=== PATIENT | female | born 1975 | race American Indian/Alaskan Native ===

== ENCOUNTER 2017-01-26 11:22 | Emergency (ER) | payer OTHER ==
[2017-01-26 12:26] LABS: Anion Gap 21 mmol/L; BUN/Creatinine Ratio 4.28; Basophils % (Auto) 0.4 % (0.0-1.8); Blood Urea Nitrogen 3 mg/dL (7-17); Calcium 8.5 mg/dL (8.4-10.2); Carbon Dioxide 17 mmol/L (22-30); Chloride 98.3 mmol/L (98-107); Glucose 117 mg/dL (65-100); Mean Corpuscular HGB Conc 29 % (30-34); Platelet Count 441 K/mm3 (140-440); Potassium 3.5 mmol/L (3.6-5.0); Red Blood Count 4.97 M/mm3 (3.65-5.03); Sodium 133 mmol/L (137-145); White Blood Count 11.1 K/mm3 (4.5-11.0)
[2017-01-26 12:27] LABS: Hematocrit 33.4 % (30.3-42.9); Hemoglobin 9.8 gm/dl (10.1-14.3); Mean Corpuscular Hemoglobin 20 pg (28-32); Mean Corpuscular Volume 67 fl (79-97); Red Cell Distribution Width 21.8 % (13.2-15.2)
[2017-01-26] MEDS ORDERED: NACL 0.9% 1000 ML 2,000 ML IV ONE (17:01)
--- NOTE | 2017-01-26 17:04 | Emergency Department Report ---
ED General Adult HPI - General Chief complaint: Syncope Stated complaint: FAINTING/SYNCOPE Time Seen by Provider: 01/26/17 16:44 Source: patient, EMS (ems notes not available at time of chart dictation), RN notes reviewed Mode of arrival: Wheelchair Limitations: No Limitations - History of Present Illness Initial comments: This is a 42-year-old female. She is previously unknown to me. Patient reports a past medical history of ADHD, anemia, gastric bypass in 2000. The patient is brought to the hospital by EMS for complaint of loss of consciousness and generalized weakness. The patient reports that for the past 3 days, she really hasn't eaten anything or drank much of anything. She has no chest pain, there is no shortness of breath. She reports that she feels weak. There is no leg pain. There is no leg swelling. No recent travel greater than 4 hours, no recent hospital admissions. There is no hematemesis. There is no bright red blood per rectum. There is no focal extremity weakness. The patient also reports a sensation of body numbness. She reports the numbness starts in her bilateral anterior distal tibial regions , and then radiates up onto her anterior thighs, and onto her stomach. This is been going on for a while. There is no bladder or bowel retention or incontinence. There is no saddle anesthesia. There is positive dysuria. The patient reports that she is taking her iron supplementation, but she is not taking her multivitamins. She reports that she does not like the way the multivitamins make her feel. Primary care doctor: Dr. Her -: Gradual Severity scale (0 -10): 0 Consistency: constant Improves with: rest Worsens with: movement Associated Symptoms: malaise, syncope. denies: chest pain - Related Data Previous Rx's Medication Instructions Recorded Last Taken Type B12/Levomefolate Calcium/B-6 1 each PO DAILY #30 tablet 02/03/15 Unknown Rx [Vkfepoxdbt-Nyfdfds-Rdbkonef Tb] Iron Fum,Ps/FA/Vit B with C #9 1 each PO DAILY #60 capsule 02/03/15 Unknown Rx [Integra Plus Capsule] Mirtazapine [Remeron] 30 mg PO QHS #30 tablet 02/03/15 Unknown Rx B12/Levomefolate Calcium/B-6 1 each PO HS #30 tablet 01/26/17 Unknown Rx [Folbic Rf Tablet] B12/Levomefolate Calcium/B-6 1 each PO QDAY #30 tablet 01/26/17 Unknown Rx [Nfhyz-Dnyppsvdmq-Pdurahwvl Tb] Nitrofurantoin [place]/M-Cryst 100 mg PO Q12HR #14 capsule 01/26/17 Unknown Rx [Macrobid CAP] Allergies Allergy/AdvReac Type Severity Reaction Status Date / Time No Known Allergies Allergy Unverified 02/02/15 13:26 ED Review of Systems ROS: Stated complaint: FAINTING/SYNCOPE Other details as noted in HPI Constitutional: denies: malaise Eyes: denies: vision change ENT: denies: epistaxis Respiratory: denies: shortness of breath Cardiovascular: syncope Gastrointestinal: denies: abdominal pain Genitourinary: denies: dysuria Musculoskeletal: denies: arthralgia, myalgia Neurological: weakness, numbness Psychiatric: anxiety ED Past Medical Hx - Past Medical History Previous Medical History?: Yes Hx Diabetes: No Hx Asthma: No Additional medical history: Obesity, Severe anemia, ADHD - Surgical History Past Surgical History?: Yes Additional Surgical History: Gastric bypass 2000 - Social History Smoking Status: Never Smoker Substance Use Type: Alcohol, Prescribed - Medications Home Medications: Home Medications Medication Instructions Recorded Confirmed Last Taken Type B12/Levomefolate Calcium/B-6 1 each PO DAILY #30 tablet 02/03/15 Unknown Rx [Tesyzuxjxt-Pxipktv-Rvyivxin Tb] Iron Fum,Ps/FA/Vit B with C #9 1 each PO DAILY #60 capsule 02/03/15 Unknown Rx [Integra Plus Capsule] Mirtazapine [Remeron] 30 mg PO QHS #30 tablet 02/03/15 Unknown Rx B12/Levomefolate Calcium/B-6 1 each PO HS #30 tablet 01/26/17 Unknown Rx [Folbic Rf Tablet] B12/Levomefolate Calcium/B-6 1 each PO QDAY #30 tablet 01/26/17 Unknown Rx [Kioxb-Glcrcuwkdg-Lpkspkhnf Tb] Nitrofurantoin [place]/M-Cryst 100 mg PO Q12HR #14 capsule 01/26/17 Unknown Rx [Macrobid CAP] ED Physical Exam - General Limitations: No Limitations General appearance: alert, in no apparent distress - Head Head exam: Present: atraumatic, normocephalic - Eye Eye exam: Present: normal appearance, PERRL, EOMI, nystagmus, other (visual acuity is intact to finger counting, color perception, reading at a close distance,) - ENT ENT exam: Present: normal exam, normal orophraynx, mucous membranes moist, normal external ear exam - Neck Neck exam: Present: normal inspection, full ROM. Absent: tenderness, meningismus - Respiratory Respiratory exam: Present: normal lung sounds bilaterally. Absent: respiratory distress, wheezes, rales, rhonchi, stridor, decreased breath sounds - Cardiovascular Cardiovascular Exam: Present: regular rate, normal rhythm. Absent: systolic murmur, diastolic murmur, rubs, gallop - GI/Abdominal GI/Abdominal exam: Present: soft, normal bowel sounds. Absent: distended, tenderness, guarding, rebound, rigid, pulsatile mass - Extremities Exam Extremities exam: Present: normal inspection, full ROM, normal capillary refill. Absent: tenderness, pedal edema, joint swelling, calf tenderness - Back Exam Back exam: Present: normal inspection, full ROM. Absent: tenderness, CVA tenderness (R), CVA tenderness (L), muscle spasm, paraspinal tenderness, vertebral tenderness - Neurological Exam Neurological exam: Present: alert, oriented X3, normal gait (negative pronator drift. Normal gndw-[id number]. Normal gait. Normal tandem gait. Negative Romberg.), other (Extraocular movements intact. Tongue midline. No facial droop. Facial sensation intact to light touch in the V1, V2, V3 distribution bilaterally. 5 and 5 strength in 4 extremities.. Sensation is intact to light touch in 4 extremities.). Absent: motor sensory deficit (sensation intact to light touch,pinprick, proprioception, in 4 extremities) - Psychiatric Psychiatric exam: Present: normal affect, normal mood - Skin Skin exam: Present: warm, dry, intact, normal color. Absent: rash ED Course Vital Signs 01/26/17 01/26/17 01/26/17 11:35 16:30 16:31 Temperature 97.9 F Pulse Rate 119 H 100 H Respiratory 20 16 16 Rate Blood Pressure 124/86 Blood Pressure 130/81 [Left] Blood Pressure [Right] O2 Sat by Pulse 100 99 Oximetry 01/26/17 19:00 Temperature Pulse Rate 89 Respiratory 16 Rate Blood Pressure Blood Pressure [Left] Blood Pressure 128/80 [Right] O2 Sat by Pulse 99 Oximetry - Reevaluation(s) Reevaluation #1: 01/26/17 19:23 differential diagnosis: Vagal event, orthostasis, hypoglycemia, electrolyte imbalance, structural cardiac disease, nonspecific neuropathy, Pulmonary embolus Assessment and plan: 42-year-old female with report of syncope. Patient reports not eating for the past 3 days. No pulmonary embolus or DVT risk factors, low risk by well's criteria, d-dimer is negative. She walks with a steady gait, has a GCS of 15, with anion score of 0. Her neurologic exam is unremarkable, and I am unable to elucidate any sensory or motor or abnormality. A CT scan of the head is negative, her laboratory studies were unremarkable, she was able to tolerate oral feeds in the emergency department, her EKG was essentially morphologically unremarkable with the exception of tachycardia which has since resolved. Her case was discussed with the point of care specialist on-call, Dr. Serrano, who agreed that the patient would be suitable to follow-up with him in the office as an outpatient. The patient was instructed to eat at least 3 full meals a day. She is instructed to follow-up with her primary care doctor or bariatric surgeon and to continue her outpatient multivitamin supplementation. Patient has been observed in the ER for approximately 8 hours with no episodes of syncope or loss of consciousness, and I believe she requires admission at this time. She will be discharged at this time. Return precautions were extensively reviewed. She is incidentally found to have a urinary tract infection, and will be discharged with Macrobid. 01/26/17 19:26 ED Medical Decision Making - Lab Data Result diagrams: 01/26/17 11:56 01/26/17 11:56 Vital Signs 01/26/17 01/26/17 01/26/17 11:35 16:30 16:31 Temperature 97.9 F Pulse Rate 119 H 100 H Respiratory 20 16 16 Rate Blood Pressure 124/86 Blood Pressure 130/81 [Left] Blood Pressure [Right] O2 Sat by Pulse 100 99 Oximetry 01/26/17 19:00 Temperature Pulse Rate 89 Respiratory 16 Rate Blood Pressure Blood Pressure [Left] Blood Pressure 128/80 [Right] O2 Sat by Pulse 99 Oximetry Lab Results 01/26/17 01/26/17 01/26/17 Range/Units 11:56 11:56 14:21 WBC 11.1 H (4.5-11.0) K/mm3 RBC 4.97 (3.65-5.03) M/mm3 Hgb 9.8 L (10.1-14.3) gm/dl Hct 33.4 (30.3-42.9) % MCV 67 L (79-97) fl MCH 20 L (28-32) pg MCHC 29 L (30-34) % RDW 21.8 H (13.2-15.2) % Plt Count 441 H (140-440) K/mm3 Lymph % (Auto) 12.4 L (13.4-35.0) % [place] % (Auto) 7.9 H (0.0-7.3) % Eos % (Auto) 0.0 (0.0-4.3) % Baso % (Auto) 0.4 (0.0-1.8) % Lymph # 1.4 (1.2-5.4) K/mm3 [place] # 0.9 H (0.0-0.8) K/mm3 Eos # 0.0 (0.0-0.4) K/mm3 Baso # 0.0 (0.0-0.1) K/mm3 Seg Neutrophils % 79.3 H (40.0-70.0) % Seg Neutrophils # 8.8 H (1.8-7.7) K/mm3 PT (12.2-14.9) Sec. INR (0.87-1.13) D-Dimer (0-234) ng/mlDDU Sodium 133 L (137-145) mmol/L Potassium 3.5 L (3.6-5.0) mmol/L Chloride 98.3 (98-107) mmol/L Carbon Dioxide 17 L (22-30) mmol/L Anion Gap 21 mmol/L BUN 3 L (7-17) mg/dL Creatinine 0.7 (0.7-1.2) mg/dL Estimated GFR > 60 ml/min BUN/Creatinine Ratio 4.28 % Glucose 117 H (65-100) mg/dL Calcium 8.5 (8.4-10.2) mg/dL Magnesium (1.7-2.3) mg/dL Troponin T < 0.010 < 0.010 (0.00-0.029) ng/mL TSH (0.270-4.200) mlU/mL HCG, Quant (0-4) mIU/mL Urine Color (Yellow) Urine Turbidity (Clear) Urine pH (5.0-7.0) Ur Specific [place] (1.003-1.030) Urine Protein (Negative) mg/dL Urine Glucose (UA) (Negative) mg/dL Urine Ketones (Negative) mg/dL Urine Blood (Negative) Urine Nitrite (Negative) Urine Bilirubin (Negative) Urine Urobilinogen (<2.0) mg/dL Ur Leukocyte Esterase (Negative) Urine WBC (Auto) (0.0-6.0) /HPF Urine RBC (Auto) (0.0-6.0) /HPF U Epithel Cells (Auto) (0-13.0) /HPF Urine Bacteria (Auto) (Negative) /HPF Urine Mucus /HPF Urine Yeast (Budding) /HPF 01/26/17 01/26/17 01/26/17 Range/Units 17:06 17:06 17:06 WBC (4.5-11.0) K/mm3 RBC (3.65-5.03) M/mm3 Hgb (10.1-14.3) gm/dl Hct (30.3-42.9) % MCV (79-97) fl MCH (28-32) pg MCHC (30-34) % RDW (13.2-15.2) % Plt Count (140-440) K/mm3 Lymph % (Auto) (13.4-35.0) % [place] % (Auto) (0.0-7.3) % Eos % (Auto) (0.0-4.3) % Baso % (Auto) (0.0-1.8) % Lymph # (1.2-5.4) K/mm3 [place] # (0.0-0.8) K/mm3 Eos # (0.0-0.4) K/mm3 Baso # (0.0-0.1) K/mm3 Seg Neutrophils % (40.0-70.0) % Seg Neutrophils # (1.8-7.7) K/mm3 PT 13.7 (12.2-14.9) Sec. INR 1.06 (0.87-1.13) D-Dimer 164.68 (0-234) ng/mlDDU Sodium (137-145) mmol/L Potassium (3.6-5.0) mmol/L Chloride (98-107) mmol/L Carbon Dioxide (22-30) mmol/L Anion Gap mmol/L BUN (7-17) mg/dL Creatinine (0.7-1.2) mg/dL Estimated GFR ml/min BUN/Creatinine Ratio % Glucose (65-100) mg/dL Calcium (8.4-10.2) mg/dL Magnesium 1.8 (1.7-2.3) mg/dL Troponin T < 0.010 (0.00-0.029) ng/mL TSH (0.270-4.200) mlU/mL HCG, Quant (0-4) mIU/mL Urine Color (Yellow) Urine Turbidity (Clear) Urine pH (5.0-7.0) Ur Specific [place] (1.003-1.030) Urine Protein (Negative) mg/dL Urine Glucose (UA) (Negative) mg/dL Urine Ketones (Negative) mg/dL Urine Blood (Negative) Urine Nitrite (Negative) Urine Bilirubin (Negative) Urine Urobilinogen (<2.0) mg/dL Ur Leukocyte Esterase (Negative) Urine WBC (Auto) (0.0-6.0) /HPF Urine RBC (Auto) (0.0-6.0) /HPF U Epithel Cells (Auto) (0-13.0) /HPF Urine Bacteria (Auto) (Negative) /HPF Urine Mucus /HPF Urine Yeast (Budding) /HPF 01/26/17 01/26/17 01/26/17 Range/Units 17:06 17:06 17:40 WBC (4.5-11.0) K/mm3 RBC (3.65-5.03) M/mm3 Hgb (10.1-14.3) gm/dl Hct (30.3-42.9) % MCV (79-97) fl MCH (28-32) pg MCHC (30-34) % RDW (13.2-15.2) % Plt Count (140-440) K/mm3 Lymph % (Auto) (13.4-35.0) % [place] % (Auto) (0.0-7.3) % Eos % (Auto) (0.0-4.3) % Baso % (Auto) (0.0-1.8) % Lymph # (1.2-5.4) K/mm3 [place] # (0.0-0.8) K/mm3 Eos # (0.0-0.4) K/mm3 Baso # (0.0-0.1) K/mm3 Seg Neutrophils % (40.0-70.0) % Seg Neutrophils # (1.8-7.7) K/mm3 PT (12.2-14.9) Sec. INR (0.87-1.13) D-Dimer (0-234) ng/mlDDU Sodium (137-145) mmol/L Potassium (3.6-5.0) mmol/L Chloride (98-107) mmol/L Carbon Dioxide (22-30) mmol/L Anion Gap mmol/L BUN (7-17) mg/dL Creatinine (0.7-1.2) mg/dL Estimated GFR ml/min BUN/Creatinine Ratio % Glucose (65-100) mg/dL Calcium (8.4-10.2) mg/dL Magnesium (1.7-2.3) mg/dL Troponin T (0.00-0.029) ng/mL TSH 1.370 (0.270-4.200) mlU/mL HCG, Quant < 2 (0-4) mIU/mL Urine Color Jeanne (Yellow) Urine Turbidity Cloudy (Clear) Urine pH 6.0 (5.0-7.0) Ur Specific [place] 1.015 (1.003-1.030) Urine Protein 30 mg/dl (Negative) mg/dL Urine Glucose (UA) Neg (Negative) mg/dL Urine Ketones Tr (Negative) mg/dL Urine Blood Sm (Negative) Urine Nitrite Neg (Negative) Urine Bilirubin Neg (Negative) Urine Urobilinogen 2.0 (<2.0) mg/dL Ur Leukocyte Esterase Lg (Negative) Urine WBC (Auto) 88.0 H (0.0-6.0) /HPF Urine RBC (Auto) 13.0 (0.0-6.0) /HPF U Epithel Cells (Auto) 9.0 (0-13.0) /HPF Urine Bacteria (Auto) 1+ (Negative) /HPF Urine Mucus Few /HPF Urine Yeast (Budding) 2+ /HPF - EKG Data 01/26/17 19:26 sinus tachycardia, 113 bpm, QTC 491 ms, not morphologically consistent with STEMI. - Radiology Data Radiology results: report reviewed, image reviewed Noncontrast CT scan of the brain is negative for acute disease Critical care attestation.: If time is entered above; I have spent that time in minutes in the direct care of this critically ill patient, excluding procedure time. ED Disposition Clinical Impression: Dizziness Disposition: DISCHARGED TO HOME OR SELFCARE Is pt being admited?: No Does the pt Need Aspirin: No Condition: Stable Instructions: Syncope (ED) Additional Instructions: take the multivitamins as directed. Follow up with the client care specialist, Dr. Serrano , within the next 3-[address] or operate motor vehicles until your primary care doctor or clears you to do point of care specialist to do so. for The nonspecific numbness, I recommend that he follow up with neurology specialist within the next 10-14 days. Kane Yang, Akin are local neurology specialist. Return to the ER right away with chest pain, shortness of breath, intractable nausea or vomiting , inability to tolerate liquid feeds. Prescriptions: B12/Levomefolate Calcium/B-6 [Syzvy-Fqezyiocst-Prcdpxtwp Tb] 1 each PO QDAY #30 tablet B12/Levomefolate Calcium/B-6 [Folbic Rf Tablet] 1 each PO HS #30 tablet Nitrofurantoin [place]/M-Cryst [Macrobid CAP] 100 mg PO Q12HR #14 capsule Referrals: HAROON HER MD [Primary Care Provider] - 3-5 Days RICKIE SERRANO MD [Staff Physician] - 3-5 Days MARLY TILLEY MD [Staff Physician] - 3-5 Days CRISTAL KEATING MD [Staff Physician] - 3-5 Days OLAF GREENBERG MD [Staff Physician] - 3-5 Days
[2017-01-26 17:50] LABS: INR 1.06 (0.87-1.13)
[2017-01-26 18:15] LABS: Bacteria,Urine 1+ /HPF (Negative); Bilirubin,Urine NEG (Negative); Blood,Urine SM (Negative); Ketones,Urine TR mg/dL (Negative); Leukocyte Esterase,Urine LG (Negative); Mucus,Urine FEW /HPF; Nitrite,Urine NEG (Negative)
--- NOTE | 2017-01-26 19:00 | Cat Scan Report ---
FINAL REPORT EXAM: CT HEAD/BRAIN WO CON HISTORY: syncope and numbness TECHNIQUE: CT imaging acquired through the head without intravenous contrast. Transaxial reformations are provided. PRIORS: None. FINDINGS: The ventricles, cisterns and sulci are within normal limits. No intraparenchymal or extra-axial mass, hemorrhage, or mass effect. Garrido and white-matter differentiation is within normal limits. Normal spherical shape of the globes. Paranasal sinuses and mastoid air cells are clear. No skull or facial fracture visualized. IMPRESSION: No acute intracranial abnormality. Consider follow-up MRI as warranted.
[2017-01-26 19:02] VITALS: BP 128/80
== END 2017-01-26 19:35 | disposition home or self-care (01) ==
LOC: ED 11:22
DX: R42 Dizziness and giddiness (principal)
CPT/HCPCS: 36415; 70450; 80048; 81001; 83735; 84443; 84484; 84702; 85025; 85379; 85610; 93005; 93010; 96360; 96361; 99285; J7030

== ENCOUNTER 2020-08-12 21:23 | Emergency (ER) | payer SELFPAY | END 2020-08-12 23:53 | disposition left against medical advice (07) | LOC: ED 21:23 | DX: M79.10 Myalgia, unspecified site (principal); Z53.21 Procedure and treatment not carried out due to patient leaving prior to being seen by health care provider ==

== ENCOUNTER 2020-12-23 11:20 | Emergency (ER) | payer OTHER ==
--- NOTE | 2020-12-23 11:42 | Emergency Department Report ---
Blank Doc - Documentation Documentation: 45-year-old female that presents with blood in stool with abdominal pain. Wanda dick describes blood in stool as dark in color. 1- This initial assessment/diagnostic orders/clinical plan/ treatment(s) is/are subject to change based on pt's health status, clinical progression and re- assessment by fellow clinical providers in the ED. Further treatment and workup at subsequent clinical provers discretion. Patient/guardians urged not to elope from ED as their condition may be serious if not clinically assessed and managed. 2-labs 3-UA
[2020-12-23 12:14] LABS: Basophils % (Auto) 0.3 % (0.0-1.8); Eosinophils % (Auto) 0.1 % (0.0-4.3); Hematocrit 24.1 % (30.3-42.9); Lymphocytes # (Auto) 2.2 K/mm3 (1.2-5.4); Lymphocytes % (Auto) 30.1 % (13.4-35.0); Mean Corpuscular HGB Conc 33 % (30-34); Mean Corpuscular Volume 88 fl (79-97); Monocytes # (Auto) 0.5 K/mm3 (0.0-0.8); Monocytes % (Auto) 6.2 % (0.0-7.3); Platelet Count 257 K/mm3 (140-440); Red Blood Count 2.74 M/mm3 (3.65-5.03); Red Cell Distribution Width 15.6 % (13.2-15.2)
[2020-12-23 12:28] LABS: INR 1.05 (0.87-1.13)
[2020-12-23 12:29] LABS: Partial Thromboplastin Time 25.8 Sec. (24.2-36.6)
[2020-12-23 12:41] LABS: Albumin 2.4 g/dL (3.9-5); Calcium 8.4 mg/dL (8.4-10.2)
--- NOTE | 2020-12-23 12:54 | Emergency Department Report ---
HPI - General Chief Complaint: GI Bleed Time Seen by Provider: 12/23/20 11:38 - HPI HPI: This is a 45-year-old -Citizen Of The [place] female presents to the emergency department from home with a complaint of seeing blood in her stool yesterday. The patient woke up this morning with some mild lower abdominal discomfort that she rates currently as a 3 out of 10 in intensity. No known aggravating or alleviating factors. She says that the stool appeared dark yesterday. She denies any history of previous rectal bleeding. She denies any fever, chest pain, back pain, shortness of breath, lower extremity swelling, dysuria, vaginal bleeding or discharge. She has a history of gastric bypass from 2000. She has a history of anemia that has previously required transfusions. No recent travel or sick contacts at home. ED Past Medical Hx - Past Medical History Previous Medical History?: Yes Hx Diabetes: No Hx Asthma: No Additional medical history: Obesity, Severe anemia, ADHD - Surgical History Past Surgical History?: Yes Additional Surgical History: Gastric bypass 2000 - Social History Smoking Status: Never Smoker Substance Use Type: None - Medications Home Medications: Home Medications Medication Instructions Recorded Confirmed Last Taken Type Fe Fumarate/FA/Mv, Min Comb#15 1 each PO QDAY capsule 03/27/17 Unknown Rx [Hemocyte Plus] Iron Fum,Ps/Folic/Bcomp,C No.9 1 each PO DAILY #60 capsule 03/27/17 Unknown Rx [Integra Plus Capsule] Magnesium Oxide [Mag-Ox] 400 mg PO QDAY #7 tablet 03/27/17 Unknown Rx Potassium Chloride 20 meq PO QDAY #7 tab 03/27/17 Unknown Rx Sertraline [Zoloft] 100 mg PO QDAY #30 tablet 03/27/17 Unknown Rx Temazepam 15 mg PO HS #30 capsule 03/27/17 Unknown Rx traZODone [Desyrel] 100 mg PO QHS #30 tablet 03/27/17 Unknown Rx Docusate Sodium [Colace] 100 mg PO BID PRN #30 capsule 06/25/20 Unknown Rx Ferrous Sulfate [Iron 325 MG] 325 mg PO DAILY #30 tablet 06/25/20 Unknown Rx Ondansetron [Zofran Odt] 4 mg PO Q8HR PRN #12 tab.rapdis 06/25/20 Unknown Rx cephALEXin [Keflex] 500 mg PO BID 7 Days #14 cap 06/25/20 Unknown Rx Ferrous Sulfate [Feosol] 325 mg PO BID #40 tablet 12/23/20 Unknown Rx Nitrofurantoin [place]/M-Cryst 100 mg PO Q12HR #14 capsule 12/23/20 Unknown Rx [Macrobid CAP] ED Review of Systems ROS: Stated complaint: BLOODY STOOL Other details as noted in HPI Comment: All other systems reviewed and negative Constitutional: denies: chills, fever Eyes: denies: eye pain, vision change ENT: denies: ear pain, throat pain Respiratory: denies: cough, shortness of breath Cardiovascular: denies: chest pain, palpitations Gastrointestinal: abdominal pain, melena. denies: nausea, vomiting Genitourinary: denies: dysuria, discharge Musculoskeletal: denies: back pain, arthralgia Skin: denies: rash, lesions Neurological: denies: headache, weakness Physical Exam - Physical Exam Vital Signs: Vital Signs 12/23/20 12:25 Respiratory 18 Rate O2 Sat by Pulse 99 Oximetry Physical Exam: GENERAL: The patient is well-developed well-nourished. HENT: Normocephalic. Atraumatic. Patient has moist mucous membranes. EYES: Extraocular motions are intact. NECK: Supple. Trachea is midline. CHEST/LUNGS: Clear to auscultation. There is no respiratory distress noted. HEART/CARDIOVASCULAR: Regular. There is no tachycardia. There is no murmur. ABDOMEN: Abdomen is soft, nontender. Patient has normal bowel sounds. There is no abdominal distention. SKIN: Skin is warm and dry. NEURO: The patient is awake, alert, and oriented. The patient is cooperative. The patient has no focal neurologic deficits. Normal speech. MUSCULOSKELETAL: There is no tenderness or deformity. There is no limitation range of motion. RECTAL: There are a few nonthrombosed external hemorrhoid seen. No gross blood. There was some brown stool obtained that was positive on guaiac testing. ED Course Vital Signs 12/23/20 12:25 Respiratory 18 Rate O2 Sat by Pulse 99 Oximetry - Reevaluation(s) Reevaluation #1: 12/23/20 18:00 The rectal examination was done with paper counter Deyanira at bedside to plastic tile layer and assist. ED Medical Decision Making - Lab Data Result diagrams: 12/23/20 11:59 12/23/20 11:59 - Radiology Data Radiology results: report reviewed, image reviewed interpreted by me: Abdominal x-ray shows nonspecific nonobstructive bowel gas. CT ABDOMEN AND PELVIS WITH CONTRAST HISTORY: MAIN. Generalized abdominal pain and bloody stool for one day COMPARISON: None. TECHNIQUE: CT images of the abdomen and pelvis were obtained following administration of intravenous contrast. All CT scans at this location are performed using CT dose reduction for ALARA by means of automated exposure control. CONTRAST: 60 ml of intravenous contrast administered. FINDINGS: Lungs/bones: The lung bases are clear. There are degenerative changes in the spine and pelvis with no acute osseous abnormality. Abdomen/pelvis: There is is hepatomegaly with steatosis. The gallbladder is unremarkable. The spleen, pancreas, adrenals, and kidneys are unremarkable. Gastric bypass changes are present. Urinary bladder is mostly collapsed but otherwise unremarkable. Uterus is unremarkable. No pelvic free fluid. There are occasional colonic diverticula with no acute colonic abnormality identified. The appendix and terminal ileum appear normal. IMPRESSION: 1. No acute abnormality identified. 2. Incidental findings as above including colonic diverticulosis without inflammatory change. - Medical Decision Making This patient presents to the emergency department with complaint of an episode of rectal bleeding yesterday, and some lower abdominal discomfort today. The patient's labs show a hemoglobin of 8 but this is consistent with previous visit s and the patient does have a history of anemia requiring previous transfusions. The rest of the patient's labs are mostly unremarkable except for a very mild urinary tract infection. On examination the patient's abdomen is soft, nondistended and nontoxic in appearance. A chaperoned rectal examination was completed that showed some nonthrombosed hemorrhoids and the brown stool obtained was positive on guaiac testing. She had an abdominal x-ray that showed nonspecific nonobstructive bowel gas. Radiology read the x-ray as showing some left-sided abdominal and flank air consistent with a recent surgery or procedure. The patient does have a history of gastric bypass but it has been greater than 20 years since she had that done. For these reasons, a CT scan of the abdomen and pelvis was completed that came back showing some diverticulosis without diverticulitis. This also may be the r vijay for the patient's rectal bleeding. Vital signs have been reassuring throughout her ED course including being afebrile. The patient will be discharged home with a prescription for Macrobid and iron supplements. She has been given an outpatient referral for gastroenterology. She will return to the emergency department with any worsening of her symptoms or with any acute distress. Critical Care Time: No Critical care attestation.: If time is entered above; I have spent that time in minutes in the direct care of this critically ill patient, excluding procedure time. ED Disposition Clinical Impression: Rectal bleeding, Diverticulosis Anemia Qualifiers: Anemia type: unspecified type Qualified Code(s): D64.9 - Anemia, unspecified UTI (urinary tract infection) Qualifiers: Urinary tract infection type: acute cystitis Hematuria presence: without hematuria Qualified Code(s): N30.00 - Acute cystitis without hematuria Disposition: TO HOME OR SELFCARE Is pt being admited?: No Condition: Stable Instructions: Rectal Bleeding, Urinary Tract Infection, Adult, Diverticulosis Additional Instructions: Please follow-up with a primary care physician in the next few days. I have given you a referral for [facility] to follow-up regarding the rectal bleeding and diverticulosis. Take the medications as prescribed. Return to the emergency department with any worsening of your symptoms, new or concerning symptoms not addressed during this current emergency department vis it, or with any acute distress. Prescriptions: Ferrous Sulfate [Feosol] 325 mg PO BID #40 tablet Nitrofurantoin Fluvanna/M-Cryst [Macrobid CAP] 100 mg PO Q12HR #14 capsule Referrals: PRIMARY CAREMD [Primary Care Provider] - 2-3 Days [facility] [Provider Group] - 2-3 Days Forms: Accompanied Note Time of Disposition: 15:22
--- NOTE | 2020-12-23 13:38 | XRay Report ---
ABDOMEN 2 VIEW(S) INDICATION / CLINICAL INFORMATION: Abd pain. COMPARISON: None available. FINDINGS: TUBES / LINES: None. BOWEL GAS PATTERN: No significant abnormality. FREE AIR / EXTRALUMINAL GAS: None seen. ADDITIONAL FINDINGS: There appears to be postoperative change in the left upper quadrant with suture material and gas tracking along the left flank region. IMPRESSION: 1. Left upper quadrant and left flank findings as outlined above. Consider follow-up CT abdomen with the use of intravenous contrast for further evaluation to rule out any kind of perforation or retrope ritoneal gas. Signer Name: Rafael Villanueva MD Signed: 12/23/2020 1:34 PM Workstation Name: [id number]
[2020-12-23 14:44] LABS: Bacteria,Urine 1+ /HPF (Negative); Bilirubin,Urine MOD (Negative); Blood,Urine NEG (Negative); Color,Urine Amber (Yellow); Hyaline Casts,Urine 1 /LPF; Mucus,Urine FEW /HPF
[2020-12-23 14:46] LABS: Ictotest,Urine Negative (Negative)
[2020-12-23] MEDS ORDERED: NITROFURANTOIN MONOHYD/M-CRYST 100 MG CAP PO ONE (14:51)
--- NOTE | 2020-12-23 15:15 | Cat Scan Report ---
CT ABDOMEN AND PELVIS WITH CONTRAST HISTORY: MAIN. Generalized abdominal pain and bloody stool for one day COMPARISON: None. TECHNIQUE: CT images of the abdomen and pelvis were obtained following administration of intravenous contrast. All CT scans at this location are performed using CT dose reduction for ALARA by means of automated exposure control. CONTRAST: 60 ml of intravenous contrast administered. FINDINGS: Lungs/bones: The lung bases are clear. There are degenerative changes in the spine and pelvis with n o acute osseous abnormality. Abdomen/pelvis: There is is hepatomegaly with steatosis. The gallbladder is unremarkable. The spleen , pancreas, adrenals, and kidneys are unremarkable. Gastric bypass changes are present. Urinary bladder is mostly collapsed but otherwise unremarkable. Uterus is unremarkable. No pelvic tamy e fluid. There are occasional colonic diverticula with no acute colonic abnormality identified. The a ppendix and terminal ileum appear normal. IMPRESSION: 1. No acute abnormality identified. 2. Incidental findings as above including colonic diverticulosis without inflammatory change. Signer Name: Rafael Villanueva MD Signed: 12/23/2020 3:11 PM Workstation Name: [id number]
[2020-12-23 15:34] VITALS: BP 109/67
== END 2020-12-23 15:48 | disposition home or self-care (01) ==
LOC: ED 11:20
DX: K57.90 Diverticulosis of intestine, part unspecified, without perforation or abscess without bleeding (principal); N39.0 Urinary tract infection, site not specified; K62.5 Hemorrhage of anus and rectum; D64.9 Anemia, unspecified; Z98.890 Other specified postprocedural states; Z79.899 Other long term (current) drug therapy
CPT/HCPCS: 36415; 74019; 74177; 80053; 81001; 83690; 84703; 85025; 85610; 85730; 87086; 99284; Q9967

== ENCOUNTER 2021-01-24 13:50 | Observation (INO) | payer OTHER ==
--- NOTE | 2021-01-24 15:05 | Event Note ---
ED Screening Note Date of service: 01/24/21 Time: 15:03 ED Screening Note: 46-year-old female patient presents to the emergency department complaints of right-sided abdominal pain radiating to her right flank/right lower back for 4 days. She reports some associated diarrhea. She experienced mild vaginal bleeding for 2 days at onset, which has since resolved. Also reports discomfort with urination. Additionally, patient has been noticing drainage from her navel area for the last few months. No current antibiotics. Tachycardic in triage. General: Awake, appropriately interactive, no acute distress. Neck: Supple. Full range of motion intact. Cardiovascular: Normal peripheral perfusion. Pulmonary: No respiratory distress. Patient is speaking normally without use of accessory muscles. Abdomen: Right CVA tenderness. Right flank tenderness. Diffuse abdominal tenderness most pronounced along the right upper and right lower quadrant without focal guarding, rigidity, or rebound. Skin: No apparent rashes or lesions. Neurological: No facial asymmetry. Speech is clear. Follows commands. Patient is alert and oriented. Musculoskeletal: Moves all four extremities spontaneously with normal range of motion. Psych: Cooperative. Appropriate mood and affect. I have greeted and performed a focused rapid initial assessment of this patient. A comprehensive ED assessment and evaluation of the patient, analysis of all test results, and completion of the medical decision-making process will be conducted by additional ED providers. This initial assessment/diagnostic orders/clinical plan/treatment(s) is/are subject to change based on patients health status, clinical progression and re-assessment. Further treatment and workup at subsequent clinical provider's discretion. Patient/guardian urged not to elope from the ED as their condition may be serious if not clinically assess ed and managed.
[2021-01-24 15:39] LABS: Basophils % (Auto) 0.2 % (0.0-1.8); Hematocrit 28.6 % (30.3-42.9); Hemoglobin 9.3 gm/dl (10.1-14.3); Lymphocytes % (Auto) 21.2 % (13.4-35.0); Mean Corpuscular HGB Conc 33 % (30-34); Mean Corpuscular Volume 83 fl (79-97); Monocytes # (Auto) 0.7 K/mm3 (0.0-0.8); Monocytes % (Auto) 7.7 % (0.0-7.3); Platelet Count 432 K/mm3 (140-440); Red Blood Count 3.43 M/mm3 (3.65-5.03); Red Cell Distribution Width 15.3 % (13.2-15.2)
[2021-01-24 15:44] LABS: Alanine Aminotransferase 27 units/L (7-56); Albumin 2.2 g/dL (3.9-5); BUN/Creatinine Ratio 11; Blood Urea Nitrogen 9 mg/dL (7-17); Calcium 7.9 mg/dL (8.4-10.2); Hemolysis Index 2
[2021-01-24 16:22] LABS: Bilirubin,Urine NEG (Negative); Blood,Urine NEG (Negative); Color,Urine Yellow (Yellow); Mucus,Urine 2+ /HPF; Protein,Urine <15 mg/dL mg/dL (Negative); Urobilinogen,Urine < 2.0 mg/dL (<2.0)
[2021-01-24] MEDS ORDERED: LACTATED RINGERS 500 ML IV ONE (16:59)
[2021-01-24] MEDS ORDERED: MAGNESIUM SULFATE 2 GM/50 ML BAG IV ONE (16:59)
[2021-01-24] MEDS ORDERED: HYDROmorphone 1 MG/1 ML INJ IV ONE ×2 (16:59→20:43)
[2021-01-24] MEDS ORDERED: D5W/0.45% NACL/KCL 40 MEQ 40 MEQ/1,000 ML BAG IV SCH (17:00)
--- NOTE | 2021-01-24 17:06 | Emergency Department Report ---
ED General Adult HPI - General Chief complaint: Abdominal Pain Stated complaint: right flank, thorax pain, ruq pain, chronic navale discharge PUI?: No Time Seen by Provider: 01/24/21 16:46 Source: patient, RN notes reviewed, old records reviewed Mode of arrival: Ambulatory Limitations: No Limitations - History of Present Illness Initial comments: The patient was evaluated in the emergency department for symptoms described in the history of present illness. He/she was evaluated in the context of the global COVID-19 pandemic, which necessitated consideration that the patient might be at risk for infection with the virus that causes COVID-19. Institutional protocols and algorithms that pertain to the evaluation of patient s at risk for COVID-19 are in a state of rapid change based on information released by regulatory bodies including the CDC and federal and state organizations. These policies and algorithms were followed during the patient's care in the emergency department. Please note that these policies, procedures and recommendations changed on a rapid basis. During the history and physical examination, I am chaperoned by nurse Kenny Garcia This is a 46-year-old female. I have evaluated this patient in the past. Patient has a history of bariatric surgery in 2000. She has a history of noncompliance with post bariatric surgical vitamins and minerals, and resulting hypoalbuminemia, electrolyte derangement, and chronic anemia. The patient presents to the ER today with a complaint of nontraumatic right p osterior flank pain, right upper quadrant pain, and right distal lateral thorax pain present for the past day or so. No fever. No loss of taste or smell. No central chest pain. No shortness of breath. No nausea, vomiting or diarrhea. No loss of taste or smell. Positive dysuria. Patient states she is not . Patient denies travel, recent surgery, posterior leg pain and leg swelling, DVT and pulmonary embolism risk factors. She also complains of chronic minimally smelly discharge from her umbilicus, which is nontender, and not painful, which has been present for months. I saw this patient in 2017. She was prescribed appropriate multivitamins and minerals. She was advised to follow-up with both primary care and bariatric surgery. Patient endorses noncompliance with this plan of care. -: Gradual, days(s) Location: chest (Right lateral inferior thorax), back, abdomen Radiation: abdomen Quality: aching Consistency: constant Improves with: rest Worsens with: movement - Related Data Previous Rx's Medication Instructions Recorded Last Taken Type Fe Fumarate/FA/Mv, Min Comb#15 1 each PO QDAY capsule 03/27/17 Unknown Rx [Hemocyte Plus] Iron Fum,Ps/Folic/Bcomp,C No.9 1 each PO DAILY #60 capsule 03/27/17 Unknown Rx [Integra Plus Capsule] Magnesium Oxide [Mag-Ox] 400 mg PO QDAY #7 tablet 03/27/17 Unknown Rx Potassium Chloride 20 meq PO QDAY #7 tab 03/27/17 Unknown Rx Sertraline [Zoloft] 100 mg PO QDAY #30 tablet 03/27/17 Unknown Rx Temazepam 15 mg PO HS #30 capsule 03/27/17 Unknown Rx traZODone [Desyrel] 100 mg PO QHS #30 tablet 03/27/17 Unknown Rx Docusate Sodium [Colace] 100 mg PO BID PRN #30 capsule 06/25/20 Unknown Rx Ferrous Sulfate [Iron 325 MG] 325 mg PO DAILY #30 tablet 06/25/20 Unknown Rx Ondansetron [Zofran Odt] 4 mg PO Q8HR PRN #12 tab.rapdis 06/25/20 Unknown Rx cephALEXin [Keflex] 500 mg PO BID 7 Days #14 cap 06/25/20 Unknown Rx Ferrous Sulfate [Feosol] 325 mg PO BID #40 tablet 12/23/20 Unknown Rx Nitrofurantoin [place]/M-Cryst 100 mg PO Q12HR #14 capsule 12/23/20 Unknown Rx [Macrobid CAP] Allergies Allergy/AdvReac Type Severity Reaction Status Date / Time No Known Allergies Allergy Verified 01/24/21 14:57 ED Review of Systems ROS: Stated complaint: NAVEL DRAINAGE/STOMACH PAIN Other details as noted in HPI Constitutional: other (Denies loss of taste and smell). denies: malaise, weakness Eyes: denies: eye discharge ENT: denies: epistaxis Respiratory: denies: cough Cardiovascular: denies: chest pain, palpitations Gastrointestinal: abdominal pain. denies: vomiting Genitourinary: dysuria Musculoskeletal: back pain Neurological: weakness Psychiatric: anxiety Hematological/Lymphatic: denies: easy bleeding ED Past Medical Hx - Past Medical History Hx Diabetes: No Hx Asthma: No Additional medical history: Obesity, Severe anemia, ADHD - Surgical History Additional Surgical History: Gastric bypass 2000TUBAL LIG - Social History Smoking Status: Never Smoker Substance Use Type: None - Medications Home Medications: Home Medications Medication Instructions Recorded Confirmed Last Taken Type Fe Fumarate/FA/Mv, Min Comb#15 1 each PO QDAY capsule 03/27/17 Unknown Rx [Hemocyte Plus] Iron Fum,Ps/Folic/Bcomp,C No.9 1 each PO DAILY #60 capsule 03/27/17 Unknown Rx [Integra Plus Capsule] Magnesium Oxide [Mag-Ox] 400 mg PO QDAY #7 tablet 03/27/17 Unknown Rx Potassium Chloride 20 meq PO QDAY #7 tab 03/27/17 Unknown Rx Sertraline [Zoloft] 100 mg PO QDAY #30 tablet 03/27/17 Unknown Rx Temazepam 15 mg PO HS #30 capsule 03/27/17 Unknown Rx traZODone [Desyrel] 100 mg PO QHS #30 tablet 03/27/17 Unknown Rx Docusate Sodium [Colace] 100 mg PO BID PRN #30 capsule 06/25/20 Unknown Rx Ferrous Sulfate [Iron 325 MG] 325 mg PO DAILY #30 tablet 06/25/20 Unknown Rx Ondansetron [Zofran Odt] 4 mg PO Q8HR PRN #12 tab.rapdis 06/25/20 Unknown Rx cephALEXin [Keflex] 500 mg PO BID 7 Days #14 cap 06/25/20 Unknown Rx Ferrous Sulfate [Feosol] 325 mg PO BID #40 tablet 12/23/20 Unknown Rx Nitrofurantoin [place]/M-Cryst 100 mg PO Q12HR #14 capsule 12/23/20 Unknown Rx [Macrobid CAP] ED Physical Exam - General Limitations: No Limitations General appearance: alert, anxious, obese - Head Head exam: Present: atraumatic, normocephalic - Eye Eye exam: Present: normal appearance, EOMI. Absent: nystagmus - ENT ENT exam: Present: normal exam, normal orophraynx, mucous membranes moist, normal external ear exam - Neck Neck exam: Present: normal inspection, full ROM. Absent: tenderness, meningismus - Respiratory Respiratory exam: Present: normal lung sounds bilaterally. Absent: respiratory distress, wheezes, rales, rhonchi, stridor, decreased breath sounds - Cardiovascular Cardiovascular Exam: Present: normal rhythm, tachycardia, normal heart sounds. Absent: bradycardia, irregular rhythm, systolic murmur, diastolic murmur, rubs, gallop - GI/Abdominal GI/Abdominal exam: Present: soft, tenderness, normal bowel sounds, other (There is right flank tenderness. There is right upper quadrant tenderness.). Absent: distended, guarding, rebound, rigid, pulsatile mass - Extremities Exam Extremities exam: Present: normal inspection, full ROM, pedal edema (1+ edema in the bilateral lower extremities), other (2+ pulses noted in the bilateral upper and lower extremities. There is no palpable cord. negative Homans sign. Muscular compartments are soft. The pelvis is stable.). Absent: calf tenderness - Back Exam Back exam: Present: normal inspection, CVA tenderness (R). Absent: tenderness, CVA tenderness (L), paraspinal tenderness, vertebral tenderness - Neurological Exam Neurological exam: Present: alert, other (No facial droop. Tongue midline. Extraocular movements intact bilaterally. Facial sensation intact to light touch in V1, V2, V3 distribution bilaterally. 5 and a 5 strength in 4 extremities. Sensation intact to light touch in 4 extremities.). Absent: motor sensory deficit - Psychiatric Psychiatric exam: Present: anxious - Skin Skin exam: Present: warm, dry, intact, normal color. Absent: rash ED Course Vital Signs 01/24/21 01/24/21 01/24/21 14:56 16:46 17:00 Temperature 99.0 F Pulse Rate 117 H 72 72 Respiratory 20 15 11 L Rate Blood Pressure 110/86 151/89 O2 Sat by Pulse 100 87 100 Oximetry 01/24/21 01/24/21 01/24/21 17:30 18:00 18:30 Temperature Pulse Rate 67 74 83 Respiratory 11 L 10 L 13 Rate Blood Pressure 141/95 146/91 132/88 O2 Sat by Pulse 100 98 99 Oximetry 01/24/21 01/24/21 01/24/21 19:43 19:50 20:00 Temperature Pulse Rate 79 Respiratory 18 12 Rate Blood Pressure 141/88 148/106 O2 Sat by Pulse 96 100 Oximetry 01/24/21 01/24/21 20:30 21:00 Temperature Pulse Rate 78 77 Respiratory 11 L 9 L Rate Blood Pressure 141/88 139/87 O2 Sat by Pulse 100 100 Oximetry - Reevaluation(s) Reevaluation #1: 01/24/21 20:43 Patient reassessed. Still having pain. She had an elevated D-dimer. CT scan of the chest negative for pulmonary embolism. Pleural effusion is suggested. CT scan of the abdomen pelvis suggestive of new ascites. Right upper quadrant ultrasound not suggestive of cholecystitis. Additional pain medication, antibiotics ordered. We have recommended admission for further diagnostic evaluation, and therapeutic treatment. Patient is amenable to this plan of care. Medical decision makin-year-old female, with ascites which appears to be new, pleural effusions which appear to be new, lactic acidosis, abdominal pain and tenderness, will require ultrasound-guided paracentesis, antibiotic therapy, supportive care, for further diagnostic evaluation of pleural effusions, lactic acidosis, and abdominal ascites. We will admit to the medical service. Hospital physician is paged to arrange admission. 01/24/21 21:22 Dr Ohara to admit to IMS he requests GI consultation we will discuss with GI carbon furnace operator helper - Consultations Consultation #1: 01/24/21 21:34 I have discussed the patient's history, physical, pertinent laboratory studies and imaging findings with gastroenterology on-call, Dr. Galeano. He advises albumin therapy, initiation of Lasix once potassium is corrected, and agrees with plan of care. His group can follow in consultation. Consultation #2: 01/24/21 21:41 I have discussed the patient's history, physical, pertinent laboratory studies and imaging findings with our general surgeon on-call, Dr. Maddox. We agree that there is no emergent surgical condition present at this time. We also agree that this is most likely secondary to hypoalbuminemia, causing ascites. She indicates her group can evaluate the patient in the morning. The hospital physician is updated. ED Medical Decision Making - Lab Data Result diagrams: 01/24/21 15:11 01/24/21 15:11 Vital Signs 01/24/21 14:56 Temperature 99.0 F Pulse Rate 117 H Respiratory 20 Rate Blood Pressure 110/86 O2 Sat by Pulse 100 Oximetry Lab Results 01/24/21 01/24/21 01/24/21 Range/Units 15:11 15:11 15:11 WBC 9.2 (4.5-11.0) K/mm3 RBC 3.43 L (3.65-5.03) M/mm3 Hgb 9.3 L (10.1-14.3) gm/dl Hct 28.6 L (30.3-42.9) % MCV 83 (79-97) fl MCH 27 L (28-32) pg MCHC 33 (30-34) % RDW 15.3 H (13.2-15.2) % Plt Count 432 (140-440) K/mm3 Lymph % (Auto) 21.2 (13.4-35.0) % [place] % (Auto) 7.7 H (0.0-7.3) % Eos % (Auto) 0.0 (0.0-4.3) % Baso % (Auto) 0.2 (0.0-1.8) % Lymph # (Auto) 2.0 (1.2-5.4) K/mm3 [place] # (Auto) 0.7 (0.0-0.8) K/mm3 Eos # (Auto) 0.0 (0.0-0.4) K/mm3 Baso # (Auto) 0.0 (0.0-0.1) K/mm3 Seg Neutrophils % 70.9 H (40.0-70.0) % Seg Neutrophils # 6.5 (1.8-7.7) K/mm3 Sodium 137 (137-145) mmol/L Potassium 2.8 L* (3.6-5.0) mmol/L Chloride 105.2 (98-107) mmol/L Carbon Dioxide 23 (22-30) mmol/L Anion Gap 12 mmol/L BUN 9 (7-17) mg/dL Creatinine 0.8 (0.6-1.2) mg/dL Estimated GFR > 60 ml/min BUN/Creatinine Ratio 11 % Glucose 84 (65-100) mg/dL Calcium 7.9 L (8.4-10.2) mg/dL Magnesium 1.50 L (1.7-2.3) mg/dL Total Bilirubin 0.30 (0.1-1.2) mg/dL AST 40 (5-40) units/L ALT 27 (7-56) units/L Alkaline Phosphatase 164 H (35-129) units/L Total Protein 5.5 L (6.3-8.2) g/dL Albumin 2.2 L (3.9-5) g/dL Albumin/Globulin Ratio 0.7 % Lipase 11 L (13-60) units/L HCG, Qual Negative (Negative) Urine Color (Yellow) Urine Turbidity (Clear) Urine pH (5.0-7.0) Ur Specific Reserve (1.003-1.030) Urine Protein (Negative) mg/dL Urine Glucose (UA) (Negative) mg/dL Urine Ketones (Negative) mg/dL Urine Blood (Negative) Urine Nitrite (Negative) Urine Bilirubin (Negative) Urine Urobilinogen (<2.0) mg/dL Ur Leukocyte Esterase (Negative) Urine WBC (Auto) (0.0-6.0) /HPF Urine RBC (Auto) (0.0-6.0) /HPF U Epithel Cells (Auto) (0-13.0) /HPF Urine Mucus /HPF 01/24/21 Range/Units 15:41 WBC (4.5-11.0) K/mm3 RBC (3.65-5.03) M/mm3 Hgb (10.1-14.3) gm/dl Hct (30.3-42.9) % MCV (79-97) fl MCH (28-32) pg MCHC (30-34) % RDW (13.2-15.2) % Plt Count (140-440) K/mm3 Lymph % (Auto) (13.4-35.0) % [place] % (Auto) (0.0-7.3) % Eos % (Auto) (0.0-4.3) % Baso % (Auto) (0.0-1.8) % Lymph # (Auto) (1.2-5.4) K/mm3 [place] # (Auto) (0.0-0.8) K/mm3 Eos # (Auto) (0.0-0.4) K/mm3 Baso # (Auto) (0.0-0.1) K/mm3 Seg Neutrophils % (40.0-70.0) % Seg Neutrophils # (1.8-7.7) K/mm3 Sodium (137-145) mmol/L Potassium (3.6-5.0) mmol/L Chloride (98-107) mmol/L Carbon Dioxide (22-30) mmol/L Anion Gap mmol/L BUN (7-17) mg/dL Creatinine (0.6-1.2) mg/dL Estimated GFR ml/min BUN/Creatinine Ratio % Glucose (65-100) mg/dL Calcium (8.4-10.2) mg/dL Magnesium (1.7-2.3) mg/dL Total Bilirubin (0.1-1.2) mg/dL AST (5-40) units/L ALT (7-56) units/L Alkaline Phosphatase (35-129) units/L Total Protein (6.3-8.2) g/dL Albumin (3.9-5) g/dL Albumin/Globulin Ratio % Lipase (13-60) units/L HCG, Qual (Negative) Urine Color Yellow (Yellow) Urine Turbidity Slightly-cloudy (Clear) Urine pH 5.0 (5.0-7.0) Ur Specific Reserve 1.023 (1.003-1.030) Urine Protein <15 mg/dl (Negative) mg/dL Urine Glucose (UA) Neg (Negative) mg/dL Urine Ketones Neg (Negative) mg/dL Urine Blood Neg (Negative) Urine Nitrite Neg (Negative) Urine Bilirubin Neg (Negative) Urine Urobilinogen < 2.0 (<2.0) mg/dL Ur Leukocyte Esterase Mod (Negative) Urine WBC (Auto) 29.0 H (0.0-6.0) /HPF Urine RBC (Auto) 11.0 (0.0-6.0) /HPF U Epithel Cells (Auto) 12.0 (0-13.0) /HPF Urine Mucus 2+ /HPF - EKG Data -: EKG Interpreted by Me EKG shows normal: sinus rhythm Rate: normal - EKG Data 01/24/21 17:23 EKG today's interpreted at 17: 23 It is compared to prior EKG from October 2016. The EKG today appears to be mostly unchanged. Today's EKG shows sinus rhythm, 68 bpm. Normal axis, QTC prolonged. Nonspecific biphasic T waves V2 and V3, flattened T waves V4, motion artifact V5. This is an abnormal EKG. This is not a STEMI. - Radiology Data Radiology results: pending, report reviewed, image reviewed interpreted by me: 1 view x-ray of the chest, interpreted by myself, negative for pneumothorax, infiltrate. Bony structures unremarkable. Cardiac silhouette within normal limits [facility] [address] [place] [address] Cat Scan Report Signed Patient: NITA MUSA MR#: [id number] : 1975 Acct:[id number] Age/Sex: 46 / F ADM Date: 01/24/21 Loc: ED Attending Dr: Ordering Physician: AMINA FERRARA MD Date of Service: 01/24/21 Procedure(s): CT angio chest Accession Number(s): [id number] cc: AMINA FERRARA MD CTA CHEST WITH CONTRAST INDICATION / CLINICAL INFORMATION: rigth thorax pain, pleuritic, + d dimer. TECHNIQUE: Axial CT images were obtained through the chest after injection of IV contrast. 3 plane MIP and/or 3D reconstructions were produced. All CT scans at this location are performed using CT dose reduction for ALARA by means of automated exposure control. COMPARISON: None available. FINDINGS: The pulmonary arteries are patent without filling defect or evidence for PTE. Bilateral pleural effusions are identified. There is atelectasis in the lower lungs however no focal consolidation. IMPRESSION: 1. No CT evidence for p ulmonary embolism. 2. Bilateral pleural effusions with lower lobe atelectasis. Please see CT abdomen report Signer Name: Cosme Easley MD Signed: 01/24/2021 8:09 PM Workstation Name: [id number] Transcribed By: CW Dictated By: TATI EASLEY MD Electronically Authenticated By: TATI EASLEY MD Signed Date/Time: 01/24/212008 DD/ 07 [facility] [address] [place] [address] Cat Scan Report Signed Patient: NITA MUSA MR#: [id number] : 1975 Acct:[id number] Age/Sex: 46 / F ADM Date: 01/24/21 Loc: ED Attending Dr: Ordering Physician: AMINA FERRARA MD Date of Service: 01/24/21 Procedure(s): CT abdomen pelvis w con Accession Number(s): [id number] cc: AMINA FERRARA MD CT ABDOMEN AND PELVIS WITH CONTRAST HISTORY: ruq pain, rigght flank pain, naval discharge. 12/23/2020 COMPARISON: None. TECHNIQUE: CT images of the abdomen and pelvis were obtained following administration of intravenous contrast. All CT scans at this location are performed using CT dose reduction for ALARA by means of automated exposure control. CONTRAST: 100 ml of intravenous contrast administered. FINDINGS: Abdomen/pelvis: There is a moderate amount of abdominal ascites. Diffuse anasarca seen throughout the body wall the lower chest and into the abdomen and pelvis. Ascites extends into the pelvis. Liver appears normal. Postsurgical change and upper GI tract. There is distended bowel loops in the upper abdomen with postsurgical change. Thickening of several small bowel loops are thickened frias. Visualized petrous appears normal. Celiac and SMA appear normal. Bilateral kidneys are unremarkable. Spleen is unremarkable. No focal liver lesion. There is constipation the colon distally. No obstruction is seen. Uterus is heterogeneous probably uterine fibroids. Endometrial fluid is seen. Urinary bladder is distended. Appendix appears normal. No acute bone findings are seen. IMPRESSION: 1. Moderate to large amount of abdominal and pelvic ascites. Diffuse mesenteric edema seen throughout. These findings are new since December 2020. 2. Cholelithiasis. 3. Bilateral pleural effusions. 4. Small bowel loops appear thickened surrounding edema and fluid. Findings could represent enteritis. No evidence for obstruction is seen. Constipation the distal colon. 5. Anasarca. Signer Name: Cosme Easley MD Signed: 01/24/2021 8:05 PM Workstation Name: [id number] Transcribed By: CW Dictated By: TATI EASLEY MD Electronically Authenticated By: TATI EASLEY MD Signed Date/Time: 01/24/212004 DD/ 00 [facility] [address] [place] [address] XRay Report Signed Patient: NITA MUSA MR#: [id number] : 1975 Acct:[id number] Age/Sex: 46 / F ADM Date: 01/24/21 Loc: ED Attending Dr: Ordering Physician: AMINA FERRARA MD Date of Service: 01/24/21 Procedure(s): XR chest 1V ap Accession Number(s): [id number] cc: AMINA FERRARA MD Fluoro Time In Minutes: CHEST 1 VIEW 01/24/2021 4:57 PM INDICATION / CLINICAL INFORMATION: Right chest pain. COMPARISON: 06/25/2020. FINDINGS: SUPPORT DEVICES: None. HEART / MEDIASTINUM: The heart size and pulmonary vasculature are normal. LUNGS / PLEURA: Mild blunting of the left lateral costophrenic angle is a new finding. The lungs are otherwise clear. No pneumothorax. ADDITIONAL FINDINGS: There are old healed rib fractures bilaterally. IMPRESSION: Mild blunting of the left lateral costophrenic angle is a new finding and may be related to pleural e ffusion or pleural thickening. Signer Name: Martín Croft MD Signed: 01/24/2021 5:24 PM Workstation Name: [id number] Transcribed By: RT Dictated By: Martín Croft MD Electronically Authenticated By: Martín Croft MD Signed Date/Time: 01/24/211723 DD/ 20 [facility] [address] [place] [id number] Ultrasound Report Signed Patient: NITA MUSA MR#: [id number] : 1975 Acct:[id number] Age/Sex: 46 / F ADM Date: 01/24/21 Loc: ED Attending Dr: Ordering Physician: AMINA FERRARA MD Date of Service: 01/24/21 Procedure(s): US abdomen limited Accession Number(s): [id number] cc: AMINA FERRARA MD Abdominal ultrasound INDICATION: Abdominal pain FINDINGS: Liver is echogenic. No focal liver lesion is definitely seen. Abdominal ascites is identified. Portal vein is patent. No gallbladder wall thickening however echogenic nonmobile structure in the gallbladder is seen. Right pleural effusion is noted. Common bile duct measures 2 mm. Right kidney appears normal. IMPRESSION: 1. Right pleural effusion and abdominal ascites. 2. Echogenic nonmobile structure within the gallbladder measures 4 mm could represent small polyps versus nonmobile gallstone. No pericholecystic fluid. 3. Hepatic st eatosis. Signer Name: Cosme Easley MD Signed: 01/24/2021 8:20 PM Workstation Name: [id number] Transcribed By: CW Dictated By: TATI EASLEY MD Electronically Authenticated By: TATI EASLEY MD Signed Date/Time: 01/24/212019 DD/ 18 - Medical Decision Making Differential diagnosis, including but not limited to: Pneumonia, pulmonary embolism, renal colic, pyelonephritis, cholecystitis, urinary tract infection, chronic anemia, chronic malnutrition, electrolyte derangement, obstruction, colitis, diverticulitis, surgical complication, electrolyte derangement, noncompliance Assessment and plan: 46-year-old female, whom I have evaluated in the past, history of bariatric surgery in 2000, whom I saw in 2017, who is noncompliant with diet and lifestyle for bariatric surgery, including noncompliance with outpatient follow-up with primary care bariatric surgeon, and noncompliance with recommended multivitamin, and mineral supplementation. She presents today with complaints of acute right thorax pain, right upper quadrant pain and right back pain, dysuria, initially with a low-grade temperature, and tachycardic, now resolved, besides remote bariatric surgical history, denies DVT and pulmonary embolism risk factors. She also complains of chronic discharge in her navel which has been present for months. She has right CVA tenderness, right upper quadrant, and right flank tenderness. We will treat her symptoms, start IV fluids, replete potassium and replete magnesium. We will obtain right upper quadrant ultrasound. We will also obtain x-ray of the chest, EKG. We will send D-dimer. Depending on D-dimer results, if negative, obtain CT scan of the abdomen pelvis. If positive, obtain CT scan of the chest, abdomen, pelvis. Patient was again extensively counseled on need to follow-up with outpatient primary care and bariatric surgeon, and to remain compliant with post bariatric surgical multivitamins and mineral supplementation. Anemia appears to be chronic. Hypoalbuminemia appears to be chronic. Corrected calcium for hypoalbuminemia: 9.3 mg/dL Corrected Calcium On navel examination, no redness, pus or streaking. Has minimal nonpurulent discharge with deep expression. This is most likely a hygiene issue. This has been present in the past. Patient will need to clean out navel appropriately, wash with gentle soap and water. Patient is in agreement with this plan of care Critical Care Time: Yes Critical care time in (mins) excluding proc time.: 35 Critical care attestation.: If time is entered above; I have spent that time in minutes in the direct care of this critically ill patient, excluding procedure time. ED Disposition Clinical Impression: Hypomagnesemia, Hypokalemia, Status post bariatric surgery, Noncompliance with medication regimen, Right upper quadrant abdominal pain, Right flank pain, Dysuria, Umbilical discharge, Ascites, Pleural effusion Disposition: DC-[id number] OP ADMIT IP TO THIS HOSP Is pt being admited?: Yes Does the pt Need Aspirin: No Condition: Good Instructions: Abdominal Pain (ED) Referrals: PRIMARY CARE, [Primary Care Provider] - 3-5 Days
--- NOTE | 2021-01-24 17:29 | XRay Report ---
CHEST 1 VIEW 01/24/2021 4:57 PM INDICATION / CLINICAL INFORMATION: Right chest pain. COMPARISON: 06/25/2020. FINDINGS: SUPPORT DEVICES: None. HEART / MEDIASTINUM: The heart size and pulmonary vasculature are normal. LUNGS / PLEURA: Mild blunting of the left lateral costophrenic angle is a new finding. The lungs are otherwise clear. No pneumothorax. ADDITIONAL FINDINGS: There are old healed rib fractures bilaterally. IMPRESSION: Mild blunting of the left lateral costophrenic angle is a new finding and may be related to pleural effusion or pleural thickening. Signer Name: Martín Croft MD Signed: 01/24/2021 5:24 PM Workstation Name: [id number]
[2021-01-24 17:59] LABS: INR 1.18 (0.87-1.13)
[2021-01-24] MEDS ORDERED: LACTATED RINGERS 1,000 ML IV ONE (18:35)
--- NOTE | 2021-01-24 20:09 | Cat Scan Report ---
CT ABDOMEN AND PELVIS WITH CONTRAST HISTORY: ruq pain, rigght flank pain, naval discharge. 12/23/2020 COMPARISON: None. TECHNIQUE: CT images of the abdomen and pelvis were obtained following administration of intravenous contrast. All CT scans at this location are performed using CT dose reduction for ALARA by means of automated exposure control. CONTRAST: 100 ml of intravenous contrast administered. FINDINGS: Abdomen/pelvis: There is a moderate amount of abdominal ascites. Diffuse anasarca seen throughout th e body wall the lower chest and into the abdomen and pelvis. Ascites extends into the pelvis. Liver a ppears normal. Postsurgical change and upper GI tract. There is distended bowel loops in the upper ab domen with postsurgical change. Thickening of several small bowel loops are thickened frias. Visualiz ed petrous appears normal. Celiac and SMA appear normal. Bilateral kidneys are unremarkable. Spleen i s unremarkable. No focal liver lesion. There is constipation the colon distally. No obstruction is se en. Uterus is heterogeneous probably uterine fibroids. Endometrial fluid is seen. Urinary bladder is distended. Appendix appears normal. No acute bone findings are seen. IMPRESSION: 1. Moderate to large amount of abdominal and pelvic ascites. Diffuse mesenteric edema seen throughout . These findings are new since December 2020. 2. Cholelithiasis. 3. Bilateral pleural effusions. 4. Small bowel loops appear thickened surrounding edema and fluid. Findings could represent enteritis . No evidence for obstruction is seen. Constipation the distal colon. 5. Anasarca. Signer Name: Cosme Easley MD Signed: 01/24/2021 8:05 PM Workstation Name: [id number]
--- NOTE | 2021-01-24 20:13 | Cat Scan Report ---
CTA CHEST WITH CONTRAST INDICATION / CLINICAL INFORMATION: rigth thorax pain, pleuritic, + d dimer. TECHNIQUE: Axial CT images were obtained through the chest after injection of IV contrast. 3 plane NC P and/or 3D reconstructions were produced. All CT scans at this location are performed using CT dose reduction for ALARA by means of automated exposure control. COMPARISON: None available. FINDINGS: The pulmonary arteries are patent without filling defect or evidence for PTE. Bilateral pleural effus ions are identified. There is atelectasis in the lower lungs however no focal consolidation. IMPRESSION: 1. No CT evidence for pulmonary embolism. 2. Bilateral pleural effusions with lower lobe atelectasis. Please see CT abdomen report Signer Name: Cosme Easley MD Signed: 01/24/2021 8:09 PM Workstation Name: [id number]
--- NOTE | 2021-01-24 20:25 | Ultrasound Report ---
Abdominal ultrasound INDICATION: Abdominal pain FINDINGS: Liver is echogenic. No focal liver lesion is definitely seen. Abdominal ascites is identifi ed. Portal vein is patent. No gallbladder wall thickening however echogenic nonmobile structure in th e gallbladder is seen. Right pleural effusion is noted. Common bile duct measures 2 mm. Right kidney appears normal. IMPRESSION: 1. Right pleural effusion and abdominal ascites. 2. Echogenic nonmobile structure within the gallbladder measures 4 mm could represent small polyps ve rsus nonmobile gallstone. No pericholecystic fluid. 3. Hepatic steatosis. Signer Name: Cosme Easley MD Signed: 01/24/2021 8:20 PM Workstation Name: [id number]
[2021-01-24] MEDS ORDERED: cefTRIAXone/NS 2 GM/100 ML 2 GM/100 ML BAG IV ONE (21:00)
[2021-01-24] MEDS ORDERED: ALBUMIN HUMAN 25% (25 GM/100 ML) INJ IV ONE (21:32)
[2021-01-24] MEDS ORDERED: ACETAMINOPHEN 325 MG TAB PO PRN (22:18)
[2021-01-24] MEDS ORDERED: ONDANSETRON 4 MG/2 ML INJ IV PRN (22:18)
[2021-01-24] MEDS ORDERED: hydrALAZINE 20 MG/1 ML INJ IV PRN (22:20)
--- NOTE | 2021-01-24 22:27 | History and Physical Report ---
History of Present Illness Date of examination: 01/24/21 Date of admission: 01/24/21 21:23 Chief complaint: Abdominal pain History of present illness: 46-year-old female with past medical history of bariatric surgery in 2000, noncompliance with post bariatric surgical vitamins and minerals, and resulting hypoalbuminemia, electrolyte derangement, and chronic anemia was brought to the emergency room because of right-sided abdominal pain radiating to her right fla nk/right lower back for 4 days. She reports some associated diarrhea. The patient complaint of nontraumatic right posterior flank pain, right upper quadrant pain, and right distal lateral thorax pain for 4 days In the emergency room patient CT scan of the abdomen shows moderate to large amount of abdominal pelvis ascites diffuse mesenteric edema seen throughout #2 cholelithiasis #3 bilateral pleural effusion #4 small bowel loops appear thickened surrounding edema and fluid findings could represent enteritis no evidence for obstruction is seen constipation the distal colon #5 anasarca Also patient potassium is 2.8 and lactic acid 2.30 Past History Past Medical History: anemia, other (History of bariatric surgery in 2000) Medications and Allergies Allergies Allergy/AdvReac Type Severity Reaction Status Date / Time No Known Allergies Allergy Verified 01/24/21 14:57 Home Medications Medication Instructions Recorded Confirmed Last Taken Type Fe Fumarate/FA/Mv, Min Comb#15 1 each PO QDAY capsule 03/27/17 Unknown Rx [Hemocyte Plus] Iron Fum,Ps/Folic/Bcomp,C No.9 1 each PO DAILY #60 capsule 03/27/17 Unknown Rx [Integra Plus Capsule] Magnesium Oxide [Mag-Ox] 400 mg PO QDAY #7 tablet 03/27/17 Unknown Rx Potassium Chloride 20 meq PO QDAY #7 tab 03/27/17 Unknown Rx Sertraline [Zoloft] 100 mg PO QDAY #30 tablet 03/27/17 Unknown Rx Temazepam 15 mg PO HS #30 capsule 03/27/17 Unknown Rx traZODone [Desyrel] 100 mg PO QHS #30 tablet 03/27/17 Unknown Rx Docusate Sodium [Colace] 100 mg PO BID PRN #30 capsule 06/25/20 Unknown Rx Ferrous Sulfate [Iron 325 MG] 325 mg PO DAILY #30 tablet 06/25/20 Unknown Rx Ondansetron [Zofran Odt] 4 mg PO Q8HR PRN #12 tab.rapdis 06/25/20 Unknown Rx cephALEXin [Keflex] 500 mg PO BID 7 Days #14 cap 06/25/20 Unknown Rx Ferrous Sulfate [Feosol] 325 mg PO BID #40 tablet 12/23/20 Unknown Rx Nitrofurantoin [place]/M-Cryst 100 mg PO Q12HR #14 capsule 12/23/20 Unknown Rx [Macrobid CAP] Active Meds: Active Medications Acetaminophen (Acetaminophen 325 Mg Tab) 650 mg PO Q4H PRN PRN Reason: Pain MILD(1-3)/Fever >100.5/CALDERA Famotidine (Famotidine 20 Mg/2 Ml Inj) 20 mg IV BID [facility] Ferrous Sulfate (Ferrous Sulfate 325 Mg Tab) 325 mg PO BID [facility] Heparin Sodium (Porcine) (Heparin 5,000 Unit/1 Ml Vial) 5,000 unit SUB-Q Q8HR [facility] Hydralazine HCl (Hydralazine 20 Mg/1 Ml Inj) 10 mg IV Q6H PRN PRN Reason: htn Potassium Chloride/Dextrose/Sod Cl (D5w/0.45% Nacl/Kcl 40 Meq) 40 meq in 1,000 mls @ 250 mls/hr IV DIRECT [facility] Last Admin: 01/24/21 18:29 Dose: 250 mls/hr Documented by: Dextrose/Sodium Chloride (D5/0.45ns) 1,000 mls @ 100 mls/hr IV DIRECT [facility] Ceftriaxone Sodium (Rocephin/Ns 2 Gm/100 Ml) 2 gm in 100 mls @ 200 mls/hr IV Q24H [facility]; Protocol Potassium Chloride (Kcl 20meq/100ml) 20 meq in 100 mls @ 100 mls/hr IV Q1H [facility] Stop: 01/25/21 00:59 Magnesium Oxide (Magnesium Oxide 400 Mg Tab) 400 mg PO QDAY [facility] Miscellaneous Medication (Iron Fum,Ps/Folic/Bcomp,C No.9 [Integra Plus Capsule]) 1 each PO DAILY [facility] Multivitamins/Iron (Fe Fumarate/Fa/Mv, Min Comb#15 Cap (Hemocyte Plus)) 1 each PO QDAY [facility] Ondansetron HCl (Ondansetron 4 Mg/2 Ml Inj) 4 mg IV Q8H PRN PRN Reason: Nausea And Vomiting Potassium Chloride (Potassium Chloride 20 Meq Packet) 20 meq PO QDAY [facility] Sertraline HCl (Sertraline 100 Mg Tab) 100 mg PO QDAY [facility] Sodium Chloride (Sodium Chloride 0.9% 10 Ml Flush Syringe) 10 ml IV BID [facility] Sodium Chloride (Sodium Chloride 0.9% 10 Ml Flush Syringe) 10 ml IV PRN PRN PRN Reason: LINE FLUSH Temazepam (Temazepam 15 Mg Cap) 15 mg PO HS [facility] Review of Systems Constitutional: weakness Gastrointestinal: abdominal pain, diarrhea Exam - Constitutional Vitals: Temp Pulse Resp BP Pulse Ox 99.0 F 77 9 L 139/87 100 01/24/21 14:56 01/24/21 21:00 01/24/21 21:00 01/24/21 21:00 01/24/21 21:00 General appearance: Present: no acute distress, well-nourished - EENT Eyes: Present: PERRL ENT: hearing intact, clear oral mucosa - Neck Neck: Present: supple, normal ROM - Respiratory Respiratory effort: normal Respiratory: bilateral: CTA - Cardiovascular Heart Sounds: Present: S1 & S2. Absent: rub, click - Extremities Extremities: pulses symmetrical, No edema Peripheral Pulses: within normal limits - Abdominal General gastrointestinal: Present: soft, non-tender, non-distended, normal bowel sounds Female genitourinary: Present: normal - Integumentary Integumentary: Present: clear, warm, dry - Musculoskeletal Musculoskeletal: gait normal, strength equal bilaterally - Psychiatric Psychiatric: appropriate mood/affect, intact judgment & insight - Neurologic Neurologic: CNII-XII intact, moves all extremities HEART Score - HEART Score Troponin: Troponin T < 0.010 ng/mL (0.00-0.029) 01/24/21 17:22 Results - Labs CBC & Chem 7: 01/24/21 15:11 01/24/21 15:11 Labs: Laboratory Last Values WBC 9.2 K/mm3 (4.5-11.0) 01/24/21 15:11 RBC 3.43 M/mm3 (3.65-5.03) L 01/24/21 15:11 Hgb 9.3 gm/dl (10.1-14.3) L 01/24/21 15:11 Hct 28.6 % (30.3-42.9) L 01/24/21 15:11 MCV 83 fl (79-97) 01/24/21 15:11 MCH 27 pg (28-32) L 01/24/21 15:11 MCHC 33 % (30-34) 01/24/21 15:11 RDW 15.3 % (13.2-15.2) H 01/24/21 15:11 Plt Count 432 K/mm3 (140-440) 01/24/21 15:11 Lymph % (Auto) 21.2 % (13.4-35.0) 01/24/21 15:11 [place] % (Auto) 7.7 % (0.0-7.3) H 01/24/21 15:11 Eos % (Auto) 0.0 % (0.0-4.3) 01/24/21 15:11 Baso % (Auto) 0.2 % (0.0-1.8) 01/24/21 15:11 Lymph # (Auto) 2.0 K/mm3 (1.2-5.4) 01/24/21 15:11 [place] # (Auto) 0.7 K/mm3 (0.0-0.8) 01/24/21 15:11 Eos # (Auto) 0.0 K/mm3 (0.0-0.4) 01/24/21 15:11 Baso # (Auto) 0.0 K/mm3 (0.0-0.1) 01/24/21 15:11 Seg Neutrophils % 70.9 % (40.0-70.0) H 01/24/21 15:11 Seg Neutrophils # 6.5 K/mm3 (1.8-7.7) 01/24/21 15:11 PT 14.8 Sec. (12.2-14.9) 01/24/21 17:22 INR 1.18 (0.87-1.13) H 01/24/21 17:22 D-Dimer 475.83 ng/mlDDU (0-234) H 01/24/21 17:22 Sodium 137 mmol/L (137-145) 01/24/21 15:11 Potassium 2.8 mmol/L (3.6-5.0) L* 01/24/21 15:11 Chloride 105.2 mmol/L (98-107) 01/24/21 15:11 Carbon Dioxide 23 mmol/L (22-30) 01/24/21 15:11 Anion Gap 12 mmol/L 01/24/21 15:11 BUN 9 mg/dL (7-17) 01/24/21 15:11 Creatinine 0.8 mg/dL (0.6-1.2) 01/24/21 15:11 Estimated GFR > 60 ml/min 01/24/21 15:11 BUN/Creatinine Ratio 11 % 01/24/21 15:11 Glucose 84 mg/dL (65-100) 01/24/21 15:11 Lactic Acid 2.00 mmol/L (0.7-2.0) 01/24/21 20:26 Calcium 7.9 mg/dL (8.4-10.2) L 01/24/21 15:11 Magnesium 1.50 mg/dL (1.7-2.3) L 01/24/21 15:11 Total Bilirubin 0.30 mg/dL (0.1-1.2) 01/24/21 15:11 AST 40 units/L (5-40) 01/24/21 15:11 ALT 27 units/L (7-56) 01/24/21 15:11 Alkaline Phosphatase 164 units/L (35-129) H 01/24/21 15:11 Troponin T < 0.010 ng/mL (0.00-0.029) 01/24/21 17:22 NT-Pro-B Natriuret Pep 214.4 pg/mL (0-450) 01/24/21 20:26 Total Protein 5.5 g/dL (6.3-8.2) L 01/24/21 15:11 Albumin 2.2 g/dL (3.9-5) L 01/24/21 15:11 Albumin/Globulin Ratio 0.7 % 01/24/21 15:11 Lipase 11 units/L (13-60) L 01/24/21 15:11 HCG, Qual Negative (Negative) 01/24/21 15:11 Urine Color Yellow (Yellow) 01/24/21 15:41 Urine Turbidity Slightly-cloudy (Clear) 01/24/21 15:41 Urine pH 5.0 (5.0-7.0) 01/24/21 15:41 Ur Specific [place] 1.023 (1.003-1.030) 01/24/21 15:41 Urine Protein <15 mg/dl mg/dL (Negative) 01/24/21 15:41 Urine Glucose (UA) Neg mg/dL (Negative) 01/24/21 15:41 Urine Ketones Neg mg/dL (Negative) 01/24/21 15:41 Urine Blood Neg (Negative) 01/24/21 15:41 Urine Nitrite Neg (Negative) 01/24/21 15:41 Urine Bilirubin Neg (Negative) 01/24/21 15:41 Urine Urobilinogen < 2.0 mg/dL (<2.0) 01/24/21 15:41 Ur Leukocyte Esterase Mod (Negative) 01/24/21 15:41 Urine WBC (Auto) 29.0 /HPF (0.0-6.0) H 01/24/21 15:41 Urine RBC (Auto) 11.0 /HPF (0.0-6.0) 01/24/21 15:41 U Epithel Cells (Auto) 12.0 /HPF (0-13.0) 01/24/21 15:41 Urine Mucus 2+ /HPF 01/24/21 15:41 - Imaging and Cardiology CT scan - abdomen: image reviewed Assessment and Plan VTE prophylaxis?: Chemical Plan of care discussed with patient/family: Yes - Patient Problems (1) Abdominal pain Current Visit: Yes Status: Acute Plan to address problem: Admit the patient to the medical telemetry. Nothing by mouth. D5 half-normal saline at the rate of 100 cc/h. Pepcid 20 mg IV every 12 hours and Zofran 4 mg IV every 6 hours as needed. Rocephin 2 g IV daily. will consult GI/surgery for evaluation. Recheck CBC BMP in the morning (2) Lactic acidosis Current Visit: Yes Status: Acute Plan to address problem: D5 half-normal saline at the rate of 100 cc/h. Pepcid 20 mg IV every 12 hours and Zofran 4 mg IV every 6 hours as needed. Rocephin 2 g IV daily. We will recheck the lactic acid in 4 hours (3) Ascites Current Visit: Yes Status: Acute Plan to address problem: Pepcid 20 mg IV every 12 hours and Zofran 4 mg IV every 6 hours as needed. Rocephin 2 g IV daily. will consult GI/surgery for evaluation. If needed will do paracentesis. Recheck CBC BMP in the morning (4) Hypokalemia Current Visit: Yes Status: Acute Plan to address problem: Potassium is supplemented. We will recheck the BMP in the morning (5) Hypomagnesemia Current Visit: Yes Status: Acute Plan to address problem: Patient got 2 g of magnesium. We will recheck the magnesium in the morning (6) Noncompliance with medication regimen Current Visit: Yes Status: Acute Plan to address problem: Patient encouraged to take the medication properly and follow-up with the primary care and GI (7) Hypoalbuminemia Current Visit: Yes Status: Acute Plan to address problem: Patient is getting IV albumin. Will consult nutrition for evaluation. Recheck CMP in the morning (8) DVT prophylaxis Current Visit: Yes Status: Acute Plan to address problem: Heparin 5000 units subcu every 8 hours for DVT prophylaxis and Pepcid 20 mg IV every 12 hours for GI prophylaxis. Patient is a full code
[2021-01-24] MEDS ORDERED: HYDROmorphone 2 MG/1 ML INJ IV ONE (23:25)
[2021-01-25] MEDS: D5W/0.45% NACL 1,000 ML IV SCH ×2 (01:56→23:06)
[2021-01-25] MEDS: POTASSIUM CHLORIDE 20 MEQ 20 MEQ/100 ML BAG IV SCH ×2 (02:11→03:40)
[2021-01-25] MEDS: MORPHINE 2 MG/1 ML INJ IV PRN ×2 (04:23→10:00)
[2021-01-25] MEDS: HEPARIN 5,000 UNIT/1 ML VIAL SUB-Q SCH ×3 (05:51→21:56)
[2021-01-25 06:33] LABS: Basophils % (Auto) 0.2 % (0.0-1.8); Hematocrit 23.4 % (30.3-42.9); Hemoglobin 7.8 gm/dl (10.1-14.3); Lymphocytes % (Auto) 26.6 % (13.4-35.0); Mean Corpuscular HGB Conc 33 % (30-34); Mean Corpuscular Volume 83 fl (79-97); Monocytes # (Auto) 0.8 K/mm3 (0.0-0.8); Monocytes % (Auto) 10.4 % (0.0-7.3); Platelet Count 312 K/mm3 (140-440); Red Blood Count 2.83 M/mm3 (3.65-5.03); Red Cell Distribution Width 15.1 % (13.2-15.2)
[2021-01-25 06:56] LABS: Alanine Aminotransferase 20 units/L (7-56); Albumin 2.3 g/dL (3.9-5); Blood Urea Nitrogen 7 mg/dL (7-17); Calcium 7.9 mg/dL (8.4-10.2); Hemolysis Index 6
[2021-01-25 06:57] LABS: BUN/Creatinine Ratio 10
[2021-01-25] MEDS ORDERED: NON-FORMULARY EACH (Iron Fum,Ps/Folic/Bcomp,C No.9 [Integra Plus Capsule] 1 EACH Capsule) PO SCH (10:00)
[2021-01-25] MEDS: FAMOTIDINE 20 MG/2 ML INJ IV SCH ×2 (10:08→21:56)
--- NOTE | 2021-01-25 10:16 | Consultation ---
History of Present Illness Consult date: 01/25/21 Reason for consult: abdominal pain - History of present illness History of present illness: 46 year old female presented to ED with abdominal pain that had gotten progressively worse over a couple of days. She has a hx of gastric bypass 2000 and admits to not have following up with bariatric provider since surgery. She has not been taking vitamins, or 'taking care of herself'. The pain is generalized and she denies nausea or vomiting. She admits to significant alcohol abuse over the last 6-7 years, but has been sober for the last 6 months. She had a CT scan in the ED that showed significant ascites and some thickened small bowel loops with no signs of obstruction or internal hernia. She was admitted for work up of ascites and GI was consulted. She has a hx of being admitted in the past before for anemia, electrolyte abnormalities, and weakness. Past History Past Medical History: anemia, other (History of bariatric surgery in 2000) Past Surgical History: Other (gastric bypass, tubal ligation) Social history: alcohol abuse, other (5-7 shots a night daily for 5-6 years until 6 months ago) Medications and Allergies Allergies Allergy/AdvReac Type Severity Reaction Status Date / Time No Known Allergies Allergy Verified 01/24/21 14:57 Home Medications Medication Instructions Recorded Confirmed Last Taken Type Fe Fumarate/FA/Mv, Min Comb#15 1 each PO QDAY capsule 03/27/17 Unknown Rx [Hemocyte Plus] Iron Fum,Ps/Folic/Bcomp,C No.9 1 each PO DAILY #60 capsule 03/27/17 Unknown Rx [Integra Plus Capsule] Magnesium Oxide [Mag-Ox] 400 mg PO QDAY #7 tablet 03/27/17 Unknown Rx Potassium Chloride 20 meq PO QDAY #7 tab 03/27/17 Unknown Rx Sertraline [Zoloft] 100 mg PO QDAY #30 tablet 03/27/17 Unknown Rx Temazepam 15 mg PO HS #30 capsule 03/27/17 Unknown Rx traZODone [Desyrel] 100 mg PO QHS #30 tablet 03/27/17 Unknown Rx Docusate Sodium [Colace] 100 mg PO BID PRN #30 capsule 06/25/20 Unknown Rx Ferrous Sulfate [Iron 325 MG] 325 mg PO DAILY #30 tablet 06/25/20 Unknown Rx Ondansetron [Zofran Odt] 4 mg PO Q8HR PRN #12 tab.rapdis 06/25/20 Unknown Rx cephALEXin [Keflex] 500 mg PO BID 7 Days #14 cap 06/25/20 Unknown Rx Ferrous Sulfate [Feosol] 325 mg PO BID #40 tablet 12/23/20 Unknown Rx Nitrofurantoin [place]/M-Cryst 100 mg PO Q12HR #14 capsule 12/23/20 Unknown Rx [Macrobid CAP] Active Meds: Active Medications Acetaminophen (Acetaminophen 325 Mg Tab) 650 mg PO Q4H PRN PRN Reason: Pain MILD(1-3)/Fever >100.5/CALDERA Famotidine (Famotidine 20 Mg/2 Ml Inj) 20 mg IV BID [facility] Last Admin: 01/25/21 10:08 Dose: 20 mg Documented by: Ferrous Sulfate (Ferrous Sulfate 325 Mg Tab) 325 mg PO BID [facility] Heparin Sodium (Porcine) (Heparin 5,000 Unit/1 Ml Vial) 5,000 unit SUB-Q Q8HR [facility] Last Admin: 01/25/21 05:51 Dose: 5,000 unit Documented by: Hydralazine HCl (Hydralazine 20 Mg/1 Ml Inj) 10 mg IV Q6H PRN PRN Reason: htn Dextrose/Sodium Chloride (D5/0.45ns) 1,000 mls @ 100 mls/hr IV DIRECT [facility] Last Admin: 01/25/21 01:56 Dose: 100 mls/hr Documented by: Ceftriaxone Sodium (Rocephin/Ns 2 Gm/100 Ml) 2 gm in 100 mls @ 200 mls/hr IV Q24H [facility]; Protocol Magnesium Oxide (Magnesium Oxide 400 Mg Tab) 400 mg PO QDAY [facility] Morphine Sulfate (Morphine 2 Mg/1 Ml Inj) 2 mg IV Q4H PRN PRN Reason: Pain, Moderate (4-6) Last Admin: 01/25/21 10:00 Dose: 2 mg Documented by: Multivitamins/Iron (Fe Fumarate/Fa/Mv, Min Comb#15 Cap (Hemocyte Plus)) 1 each PO QDAY [facility] Ondansetron HCl (Ondansetron 4 Mg/2 Ml Inj) 4 mg IV Q8H PRN PRN Reason: Nausea And Vomiting Potassium Chloride (Potassium Chloride 20 Meq Packet) 20 meq PO QDAY [facility] Sertraline HCl (Sertraline 100 Mg Tab) 100 mg PO QDAY [facility] Sodium Chloride (Sodium Chloride 0.9% 10 Ml Flush Syringe) 10 ml IV BID [facility] Sodium Chloride (Sodium Chloride 0.9% 10 Ml Flush Syringe) 10 ml IV PRN PRN PRN Reason: LINE FLUSH Temazepam (Temazepam 15 Mg Cap) 15 mg PO HS [facility] Review of Systems - Constitutional weakness - Respiratory no shortness of breath - Gastrointestinal abdominal pain, no nausea, no vomiting, no constipation, no melena, no jaundice - Neurological parathesias Exam Vital Signs Temp Pulse Resp BP Pulse Ox 99.0 F 117 H 20 110/86 100 01/24/21 14:56 01/24/21 14:56 01/24/21 14:56 01/24/21 14:56 01/24/21 14:56 - General physical appearance Positive: well developed, no distress, no pain, cathetic - Respiratory Positive: normal expansion, normal respiratory effort - Cardiovascular Heart Sounds: Present: S1 & S2 - Extremities Extremities: no ischemia - Abdomen Abdomen: Present: soft, tender. Absent: distended, guarding, rigid Results - Labs 01/25/21 05:32 01/25/21 05:32 Abnormal lab results 01/24/21 01/24/21 01/24/21 Range/Units 15:11 15:11 15:41 RBC 3.43 L (3.65-5.03) M/mm3 Hgb 9.3 L (10.1-14.3) gm/dl Hct 28.6 L (30.3-42.9) % MCH 27 L (28-32) pg RDW 15.3 H (13.2-15.2) % [place] % (Auto) 7.7 H (0.0-7.3) % Seg Neutrophils % 70.9 H (40.0-70.0) % INR (0.87-1.13) D-Dimer (0-234) ng/mlDDU Potassium 2.8 L* (3.6-5.0) mmol/L Chloride (98-107) mmol/L Lactic Acid (0.7-2.0) mmol/L Calcium 7.9 L (8.4-10.2) mg/dL Magnesium 1.50 L (1.7-2.3) mg/dL Alkaline Phosphatase 164 H (35-129) units/L Total Protein 5.5 L (6.3-8.2) g/dL Albumin 2.2 L (3.9-5) g/dL Lipase 11 L (13-60) units/L Urine WBC (Auto) 29.0 H (0.0-6.0) /HPF 01/24/21 01/24/21 01/25/21 Range/Units 17:22 17:22 05:32 RBC 2.83 L (3.65-5.03) M/mm3 Hgb 7.8 L (10.1-14.3) gm/dl Hct 23.4 L (30.3-42.9) % MCH (28-32) pg RDW (13.2-15.2) % [place] % (Auto) 10.4 H (0.0-7.3) % Seg Neutrophils % (40.0-70.0) % INR 1.18 H (0.87-1.13) D-Dimer 475.83 H (0-234) ng/mlDDU Potassium (3.6-5.0) mmol/L Chloride (98-107) mmol/L Lactic Acid 2.30 H* (0.7-2.0) mmol/L Calcium (8.4-10.2) mg/dL Magnesium (1.7-2.3) mg/dL Alkaline Phosphatase (35-129) units/L Total Protein (6.3-8.2) g/dL Albumin (3.9-5) g/dL Lipase (13-60) units/L Urine WBC (Auto) (0.0-6.0) /HPF 01/25/21 Range/Units 05:32 RBC (3.65-5.03) M/mm3 Hgb (10.1-14.3) gm/dl Hct (30.3-42.9) % MCH (28-32) pg RDW (13.2-15.2) % [place] % (Auto) (0.0-7.3) % Seg Neutrophils % (40.0-70.0) % INR (0.87-1.13) D-Dimer (0-234) ng/mlDDU Potassium (3.6-5.0) mmol/L Chloride 108.6 H (98-107) mmol/L Lactic Acid (0.7-2.0) mmol/L Calcium 7.9 L (8.4-10.2) mg/dL Magnesium (1.7-2.3) mg/dL Alkaline Phosphatase (35-129) units/L Total Protein 4.7 L (6.3-8.2) g/dL Albumin 2.3 L (3.9-5) g/dL Lipase (13-60) units/L Urine WBC (Auto) (0.0-6.0) /HPF Diabetes panel 01/24/21 01/25/21 Range/Units 15:11 05:32 Sodium 137 141 (137-145) mmol/L Potassium 2.8 L* 3.7 D (3.6-5.0) mmol/L Chloride 105.2 108.6 H (98-107) mmol/L Carbon Dioxide 23 25 (22-30) mmol/L BUN 9 7 (7-17) mg/dL Creatinine 0.8 0.7 (0.6-1.2) mg/dL Glucose 84 76 (65-100) mg/dL Calcium 7.9 L 7.9 L (8.4-10.2) mg/dL AST 40 25 (5-40) units/L ALT 27 20 (7-56) units/L Alkaline Phosphatase 164 H 119 (35-129) units/L Total Protein 5.5 L 4.7 L (6.3-8.2) g/dL Albumin 2.2 L 2.3 L (3.9-5) g/dL Calcium panel 01/24/21 01/25/21 Range/Units 15:11 05:32 Calcium 7.9 L 7.9 L (8.4-10.2) mg/dL Albumin 2.2 L 2.3 L (3.9-5) g/dL Pituitary panel 01/24/21 01/25/21 Range/Units 15:11 05:32 Sodium 137 141 (137-145) mmol/L Potassium 2.8 L* 3.7 D (3.6-5.0) mmol/L Chloride 105.2 108.6 H (98-107) mmol/L Carbon Dioxide 23 25 (22-30) mmol/L BUN 9 7 (7-17) mg/dL Creatinine 0.8 0.7 (0.6-1.2) mg/dL Glucose 84 76 (65-100) mg/dL Calcium 7.9 L 7.9 L (8.4-10.2) mg/dL Adrenal panel 01/24/21 01/25/21 Range/Units 15:11 05:32 Sodium 137 141 (137-145) mmol/L Potassium 2.8 L* 3.7 D (3.6-5.0) mmol/L Chloride 105.2 108.6 H (98-107) mmol/L Carbon Dioxide 23 25 (22-30) mmol/L BUN 9 7 (7-17) mg/dL Creatinine 0.8 0.7 (0.6-1.2) mg/dL Glucose 84 76 (65-100) mg/dL Calcium 7.9 L 7.9 L (8.4-10.2) mg/dL Total Bilirubin 0.30 0.30 (0.1-1.2) mg/dL AST 40 25 (5-40) units/L ALT 27 20 (7-56) units/L Alkaline Phosphatase 164 H 119 (35-129) units/L Total Protein 5.5 L 4.7 L (6.3-8.2) g/dL Albumin 2.2 L 2.3 L (3.9-5) g/dL - Imaging CT scan - abdomen: report reviewed, image reviewed CT scan - pelvis: report reviewed, image reviewed Assessment and Plan 46 year old female with a remote hx of gastric bypass. Presents with abdominal pain and new ascites of unclear etiology. Afebrile and stable with no indication at this time for surgical intervention. Pt is chronically malnourished and needs to start taking comprehensive vitamins, and be followed in a bariatric practice for annual follow up at a minimum. Appreciate GI recommendations. -while in the hospital check vitamin levels start protein supplementation with meals
--- NOTE | 2021-01-25 10:44 | Gastroenterology Consultation ---
History of Present Illness - Reason for Consult Consult date: 01/25/21 ascites Requesting physician: AMINA FERRARA - History of Present Illness The patient is a 46 yo aaf with history of gastric bypass 2000, presenting with right flank pain and [facility]. pt reports having [facility] liquid seepage/discharge for past few weeks with recent onset abd pain for 2-[address] scan on admission shows new onset ascites compared to imaging ~1 month ago. Liver appears normal per imaging report. she reports prior history of alcohol abuse, consumed "5-6 shots of vodka" per evening until 2-3 months ago after she was found to have elevated liver enzymes with outpatient labs (per pts history). Past History Past Medical History: anemia, other (History of bariatric surgery in 2000) Past Surgical History: Other (gastric bypass, tubal ligation) Social history: alcohol abuse, other (5-7 shots a night daily for 5-6 years until 6 months ago) Medications and Allergies Allergies Allergy/AdvReac Type Severity Reaction Status Date / Time No Known Allergies Allergy Verified 01/24/21 14:57 Home Medications Medication Instructions Recorded Confirmed Last Taken Type Fe Fumarate/FA/Mv, Min Comb#15 1 each PO QDAY capsule 03/27/17 Unknown Rx [Hemocyte Plus] Iron Fum,Ps/Folic/Bcomp,C No.9 1 each PO DAILY #60 capsule 03/27/17 Unknown Rx [Integra Plus Capsule] Magnesium Oxide [Mag-Ox] 400 mg PO QDAY #7 tablet 03/27/17 Unknown Rx Potassium Chloride 20 meq PO QDAY #7 tab 03/27/17 Unknown Rx Sertraline [Zoloft] 100 mg PO QDAY #30 tablet 03/27/17 Unknown Rx Temazepam 15 mg PO HS #30 capsule 03/27/17 Unknown Rx traZODone [Desyrel] 100 mg PO QHS #30 tablet 03/27/17 Unknown Rx Docusate Sodium [Colace] 100 mg PO BID PRN #30 capsule 06/25/20 Unknown Rx Ferrous Sulfate [Iron 325 MG] 325 mg PO DAILY #30 tablet 06/25/20 Unknown Rx Ondansetron [Zofran Odt] 4 mg PO Q8HR PRN #12 tab.rapdis 06/25/20 Unknown Rx cephALEXin [Keflex] 500 mg PO BID 7 Days #14 cap 06/25/20 Unknown Rx Ferrous Sulfate [Feosol] 325 mg PO BID #40 tablet 12/23/20 Unknown Rx Nitrofurantoin [place]/M-Cryst 100 mg PO Q12HR #14 capsule 12/23/20 Unknown Rx [Macrobid CAP] Active Meds: Active Medications Acetaminophen (Acetaminophen 325 Mg Tab) 650 mg PO Q4H PRN PRN Reason: Pain MILD(1-3)/Fever >100.5/[facility]DERA Famotidine (Famotidine 20 Mg/2 Ml Inj) 20 mg IV BID [facility] Last Admin: 01/25/21 10:08 Dose: 20 mg Documented by: Ferrous Sulfate (Ferrous Sulfate 325 Mg Tab) 325 mg PO BID [facility] Heparin Sodium (Porcine) (Heparin 5,000 Unit/1 Ml Vial) 5,000 unit SUB-Q Q8HR [facility] Last Admin: 01/25/21 05:51 Dose: 5,000 unit Documented by: Hydralazine HCl (Hydralazine 20 Mg/1 Ml Inj) 10 mg IV Q6H PRN PRN Reason: htn Dextrose/Sodium Chloride (D5/0.45ns) 1,000 mls @ 100 mls/hr IV DIRECT [facility] Last Admin: 01/25/21 01:56 Dose: 100 mls/hr Documented by: Ceftriaxone Sodium (Rocephin/Ns 2 Gm/100 Ml) 2 gm in 100 mls @ 200 mls/hr IV Q24H [facility]; Protocol Magnesium Oxide (Magnesium Oxide 400 Mg Tab) 400 mg PO QDAY [facility] Morphine Sulfate (Morphine 2 Mg/1 Ml Inj) 2 mg IV Q4H PRN PRN Reason: Pain, Moderate (4-6) Last Admin: 01/25/21 10:00 Dose: 2 mg Documented by: Multivitamins/Iron (Fe Fumarate/Fa/Mv, Min Comb#15 Cap (Hemocyte Plus)) 1 each PO QDAY [facility] Ondansetron HCl (Ondansetron 4 Mg/2 Ml Inj) 4 mg IV Q8H PRN PRN Reason: Nausea And Vomiting Potassium Chloride (Potassium Chloride 20 Meq Packet) 20 meq PO QDAY [facility] Sertraline HCl (Sertraline 100 Mg Tab) 100 mg PO QDAY [facility] Sodium Chloride (Sodium Chloride 0.9% 10 Ml Flush Syringe) 10 ml IV BID [facility] Sodium Chloride (Sodium Chloride 0.9% 10 Ml Flush Syringe) 10 ml IV PRN PRN PRN Reason: LINE FLUSH Temazepam (Temazepam 15 Mg Cap) 15 mg PO HS FAUZIA reviewed/updated patient's home and current medications Review of Systems - Review of Systems All systems: negative (per HPI) Exam - Constitutional Vital Signs: Temp Pulse Resp BP Pulse Ox 99.0 F 93 H 8 L 121/85 99 01/24/21 14:56 01/24/21 23:00 01/24/21 23:00 01/24/21 23:00 01/24/21 23:00 General appearance: no acute distress - EENT Eyes: PERRL, EOM intact - Respiratory Respiratory effort: normal Respiratory: bilateral: CTA - Cardiovascular Rhythm: regular Heart Sounds: Present: S1 & S2 - Gastrointestinal General gastrointestinal: Present: soft, non-tender, non-distended, other (+ surgical scar) - Integumentary Integumentary: Present: clear, warm - Neurologic Neurological: alert and oriented x3 - Psychiatric Psychiatric: appropriate mood/affect - Labs CBC & Chem 7: 01/25/21 05:32 01/25/21 05:32 Lab Results: Laboratory Results - last 24 hr 01/24/21 01/24/21 01/24/21 15:11 15:11 15:11 WBC 9.2 RBC 3.43 L Hgb 9.3 L Hct 28.6 L MCV 83 MCH 27 L MCHC 33 RDW 15.3 H Plt Count 432 Lymph % (Auto) 21.2 [place] % (Auto) 7.7 H Eos % (Auto) 0.0 Baso % (Auto) 0.2 Lymph # (Auto) 2.0 [place] # (Auto) 0.7 Eos # (Auto) 0.0 Baso # (Auto) 0.0 Seg Neutrophils % 70.9 H Seg Neutrophils # 6.5 PT INR D-Dimer Sodium 137 Potassium 2.8 L* Chloride 105.2 Carbon Dioxide 23 Anion Gap 12 BUN 9 Creatinine 0.8 Estimated GFR > 60 BUN/Creatinine Ratio 11 Glucose 84 Lactic Acid Calcium 7.9 L Magnesium 1.50 L Total Bilirubin 0.30 AST 40 ALT 27 Alkaline Phosphatase 164 H Troponin T NT-Pro-B Natriuret Pep Total Protein 5.5 L Albumin 2.2 L Albumin/Globulin Ratio 0.7 Lipase 11 L HCG, Qual Negative Urine Color Urine Turbidity Urine pH Ur Specific [place] Urine Protein Urine Glucose (UA) Urine Ketones Urine Blood Urine Nitrite Urine Bilirubin Urine Urobilinogen Ur Leukocyte Esterase Urine WBC (Auto) Urine RBC (Auto) U Epithel Cells (Auto) Urine Mucus 01/24/21 01/24/21 01/24/21 15:41 17:22 17:22 WBC RBC Hgb Hct MCV MCH MCHC RDW Plt Count Lymph % (Auto) [place] % (Auto) Eos % (Auto) Baso % (Auto) Lymph # (Auto) [place] # (Auto) Eos # (Auto) Baso # (Auto) Seg Neutrophils % Seg Neutrophils # PT 14.8 INR 1.18 H D-Dimer 475.83 H Sodium Potassium Chloride Carbon Dioxide Anion Gap BUN Creatinine Estimated GFR BUN/Creatinine Ratio Glucose Lactic Acid Calcium Magnesium Total Bilirubin AST ALT Alkaline Phosphatase Troponin T < 0.010 NT-Pro-B Natriuret Pep Total Protein Albumin Albumin/Globulin Ratio Lipase HCG, Qual Urine Color Yellow Urine Turbidity Slightly-cloudy Urine pH 5.0 Ur Specific [place] 1.023 Urine Protein <15 mg/dl Urine Glucose (UA) Neg Urine Ketones Neg Urine Blood Neg Urine Nitrite Neg Urine Bilirubin Neg Urine Urobilinogen < 2.0 Ur Leukocyte Esterase Mod Urine WBC (Auto) 29.0 H Urine RBC (Auto) 11.0 U Epithel Cells (Auto) 12.0 Urine Mucus 2+ 01/24/21 01/24/21 01/24/21 17:22 20:26 20:26 WBC RBC Hgb Hct MCV MCH MCHC RDW Plt Count Lymph % (Auto) [place] % (Auto) Eos % (Auto) Baso % (Auto) Lymph # (Auto) [place] # (Auto) Eos # (Auto) Baso # (Auto) Seg Neutrophils % Seg Neutrophils # PT INR D-Dimer Sodium Potassium Chloride Carbon Dioxide Anion Gap BUN Creatinine Estimated GFR BUN/Creatinine Ratio Glucose Lactic Acid 2.30 H* 2.00 Calcium Magnesium Total Bilirubin AST ALT Alkaline Phosphatase Troponin T NT-Pro-B Natriuret Pep 214.4 Total Protein Albumin Albumin/Globulin Ratio Lipase HCG, Qual Urine Color Urine Turbidity Urine pH Ur Specific [place] Urine Protein Urine Glucose (UA) Urine Ketones Urine Blood Urine Nitrite Urine Bilirubin Urine Urobilinogen Ur Leukocyte Esterase Urine WBC (Auto) Urine RBC (Auto) U Epithel Cells (Auto) Urine Mucus 01/24/21 01/25/21 01/25/21 23:30 05:32 05:32 WBC 7.7 RBC 2.83 L Hgb 7.8 L Hct 23.4 L MCV 83 MCH 28 MCHC 33 RDW 15.1 Plt Count 312 Lymph % (Auto) 26.6 [place] % (Auto) 10.4 H Eos % (Auto) 0.0 Baso % (Auto) 0.2 Lymph # (Auto) 2.0 [place] # (Auto) 0.8 Eos # (Auto) 0.0 Baso # (Auto) 0.0 Seg Neutrophils % 62.8 Seg Neutrophils # 4.8 PT INR D-Dimer Sodium 141 Potassium 3.7 D Chloride 108.6 H Carbon Dioxide 25 Anion Gap 11 BUN 7 Creatinine 0.7 Estimated GFR > 60 BUN/Creatinine Ratio 10 Glucose 76 Lactic Acid 2.00 Calcium 7.9 L Magnesium Total Bilirubin 0.30 AST 25 ALT 20 Alkaline Phosphatase 119 Troponin T NT-Pro-B Natriuret Pep Total Protein 4.7 L Albumin 2.3 L Albumin/Globulin Ratio 1.0 Lipase HCG, Qual Urine Color Urine Turbidity Urine pH Ur Specific [place] Urine Protein Urine Glucose (UA) Urine Ketones Urine Blood Urine Nitrite Urine Bilirubin Urine Urobilinogen Ur Leukocyte Esterase Urine WBC (Auto) Urine RBC (Auto) U Epithel Cells (Auto) Urine Mucus 01/25/21 05:32 WBC RBC Hgb Hct MCV MCH MCHC RDW Plt Count Lymph % (Auto) [place] % (Auto) Eos % (Auto) Baso % (Auto) Lymph # (Auto) [place] # (Auto) Eos # (Auto) Baso # (Auto) Seg Neutrophils % Seg Neutrophils # PT INR D-Dimer Sodium Potassium Chloride Carbon Dioxide Anion Gap BUN Creatinine Estimated GFR BUN/Creatinine Ratio Glucose Lactic Acid 0.90 Calcium Magnesium Total Bilirubin AST ALT Alkaline Phosphatase Troponin T NT-Pro-B Natriuret Pep Total Protein Albumin Albumin/Globulin Ratio Lipase HCG, Qual Urine Color Urine Turbidity Urine pH Ur Specific [place] Urine Protein Urine Glucose (UA) Urine Ketones Urine Blood Urine Nitrite Urine Bilirubin Urine Urobilinogen Ur Leukocyte Esterase Urine WBC (Auto) Urine RBC (Auto) U Epithel Cells (Auto) Urine Mucus - Imaging CT Scan: report reviewed Ultrasound: report reviewed Assessment and Plan 1. Ascites - new onset, unclear etiology. prior history of alcohol abuse so could be portal htn related although normal appearing liver on ct scan. needs diagnostic paracentesis to initiate work-up (please send fluid for albumin, total protein, cell count and diff, gram stain, and cytology). 2. abd/flank pain - unclear etiology, ? related given location and UA findings, liver enzymes and lipase normal. okay to resume diet from gi stand point
--- NOTE | 2021-01-25 11:30 | Electrocardiograph Report ---
[facility] Test Date: 2021-01-24 Test Time: 17:17:33 Pat Name: NITA MUSA Department: Room: A379 1 Gender: F Assistant Hairstylist: GRETTA : 1975 Requested By: AFSHAN MCPHERSON Order Number: [id number] Reading MD: Say Magdaleno Measurements Intervals [place] Rate: 68 P: -6 SD: 111 QRS: 53 QRSD: 93 T: 70 QT: 432 QTc: 461 Interpretive Statements Sinus rhythm non specific st-t No previous ECG available for comparison Electronically Signed On 01-25-2021 11:30:26 EDT by Say Magdaleno
[2021-01-25 14:57] LABS: Iron 55 ug/dL (37-170); Total Iron Binding Capacity 134 mcg/dL (250-450)
--- NOTE | 2021-01-25 17:05 | Progress Note ---
Assessment and Plan Assessment and plan: 46-year-old female with past medical history of bariatric surgery in 2000, noncompliance with post bariatric surgical vitamins and minerals, and resulting hypoalbuminemia, electrolyte derangement, and chronic anemia was brought to the emergency room because of right-sided abdominal pain radiating to her right flank/right lower back for 4 days. She reports some associated diarrhea. In the emergency room patient CT scan of the abdomen shows moderate to large amount of abdominal pelvis ascites diffuse mesenteric edema seen throughout #2 cholelithiasis #3 bilateral pleural effusion #4 small bowel loops appear thickened surrounding edema and fluid findings could represent enteritis no evidence for obstruction is seen constipation the distal colon #5 anasarca Also patient potassium is 2.8 and lactic acid 2.30. GI and gen surgery consulted. (1) Abdominal pain Current Visit: Yes Status: Acute Plan to address problem: Start diet per GI D5 half-normal saline at the rate of 100 cc/h. CT abdomen reviewed (2) Lactic acidosis Current Visit: Yes Status: Acute Plan to address problem: Resolved with fluids (3) Ascites Current Visit: Yes Status: Acute Plan to address problem: GI recommends paracentesis, orders placed (4) Hypokalemia Current Visit: Yes Status: Acute Plan to address problem: Replete PRN (5) Hypomagnesemia Current Visit: Yes Status: Acute Plan to address problem: Replete PRN (6) Noncompliance with medication regimen Current Visit: Yes Status: Acute Plan to address problem: pt to f/u with bariatric surgeon in outpt setting (7) Hypoalbuminemia Current Visit: Yes Status: Acute Plan to address problem: Patient is getting IV albumin. nutrition rec low sodium diet pt needs supplements (8) DVT prophylaxis Current Visit: Yes Status: Acute Plan to address problem: Heparin 5000 units subcu every 8 hours for DVT prophylaxis and Pepcid 20 mg IV every 12 hours for GI prophylaxis. DISPOSITION: Low sodium diet, pain control, paracentesis planned with cytology labs History Interval history: 01/25: pt continues to have abdominal pain, will start diet, pt w/o n/v. No surgic al intervention for now, GI recommends paracentesis Hospitalist Physical - Physical exam Narrative exam: General appearance: Present: no acute distress, well-nourished EENT: PERRL, EOM intact, hearing intact, clear oral mucosa, dentition normal Neck: Present: supple, normal ROM Respiratory: bilateral: CTA, negative: rales, rhonchi, wheezing Cardiovascular: Rhythm: regular Heart Sounds: Present: S1 & S2. Absent: gallop, rub Extremities: no ischemia, No edema, normal temperature, normal color, Full ROM Abdominal: abdominal scar, tender to touch, non-distended, decreased bowel sounds Integumentary: Present: clear, warm, dry Psychiatric: appropriate mood/affect, intact judgment & insight Neurologic: CNII-XII intact, moves all extremities - Constitutional Vitals: Temp Pulse Resp BP Pulse Ox 99.0 F 93 H 8 L 121/85 99 01/24/21 14:56 01/24/21 23:00 01/24/21 23:00 01/24/21 23:00 01/24/21 23:00 General appearance: Present: no acute distress, well-nourished HEART Score - HEART Score Troponin: Troponin T < 0.010 ng/mL (0.00-0.029) 01/24/21 17:22 Results - Labs CBC & Chem 7: 01/25/21 05:32 01/25/21 05:32 Labs: Laboratory Last Values WBC 7.7 K/mm3 (4.5-11.0) 01/25/21 05:32 RBC 2.83 M/mm3 (3.65-5.03) L 01/25/21 05:32 Hgb 7.8 gm/dl (10.1-14.3) L 01/25/21 05:32 Hct 23.4 % (30.3-42.9) L 01/25/21 05:32 MCV 83 fl (79-97) 01/25/21 05:32 MCH 28 pg (28-32) 01/25/21 05:32 MCHC 33 % (30-34) 01/25/21 05:32 RDW 15.1 % (13.2-15.2) 01/25/21 05:32 Plt Count 312 K/mm3 (140-440) 01/25/21 05:32 Lymph % (Auto) 26.6 % (13.4-35.0) 01/25/21 05:32 [place] % (Auto) 10.4 % (0.0-7.3) H 01/25/21 05:32 Eos % (Auto) 0.0 % (0.0-4.3) 01/25/21 05:32 Baso % (Auto) 0.2 % (0.0-1.8) 01/25/21 05:32 Lymph # (Auto) 2.0 K/mm3 (1.2-5.4) 01/25/21 05:32 [place] # (Auto) 0.8 K/mm3 (0.0-0.8) 01/25/21 05:32 Eos # (Auto) 0.0 K/mm3 (0.0-0.4) 01/25/21 05:32 Baso # (Auto) 0.0 K/mm3 (0.0-0.1) 01/25/21 05:32 Seg Neutrophils % 62.8 % (40.0-70.0) 01/25/21 05:32 Seg Neutrophils # 4.8 K/mm3 (1.8-7.7) 01/25/21 05:32 PT 14.8 Sec. (12.2-14.9) 01/24/21 17:22 INR 1.18 (0.87-1.13) H 01/24/21 17:22 D-Dimer 475.83 ng/mlDDU (0-234) H 01/24/21 17:22 Sodium 141 mmol/L (137-145) 01/25/21 05:32 Potassium 3.7 mmol/L (3.6-5.0) D 01/25/21 05:32 Chloride 108.6 mmol/L (98-107) H 01/25/21 05:32 Carbon Dioxide 25 mmol/L (22-30) 01/25/21 05:32 Anion Gap 11 mmol/L 01/25/21 05:32 BUN 7 mg/dL (7-17) 01/25/21 05:32 Creatinine 0.7 mg/dL (0.6-1.2) 01/25/21 05:32 Estimated GFR > 60 ml/min 01/25/21 05:32 BUN/Creatinine Ratio 10 % 01/25/21 05:32 Glucose 76 mg/dL (65-100) 01/25/21 05:32 Lactic Acid 0.90 mmol/L (0.7-2.0) 01/25/21 05:32 Calcium 7.9 mg/dL (8.4-10.2) L 01/25/21 05:32 Magnesium 1.50 mg/dL (1.7-2.3) L 01/24/21 15:11 Iron 55 ug/dL (37-170) 01/25/21 13:32 TIBC 134 mcg/dL (250-450) L 01/25/21 13:32 Ferritin 18.1 ng/mL (10.0-200.0) 01/25/21 13:32 Total Bilirubin 0.30 mg/dL (0.1-1.2) 01/25/21 05:32 AST 25 units/L (5-40) 01/25/21 05:32 ALT 20 units/L (7-56) 01/25/21 05:32 Alkaline Phosphatase 119 units/L (35-129) 01/25/21 05:32 Troponin T < 0.010 ng/mL (0.00-0.029) 01/24/21 17:22 NT-Pro-B Natriuret Pep 214.4 pg/mL (0-450) 01/24/21 20:26 Total Protein 4.7 g/dL (6.3-8.2) L 01/25/21 05:32 Albumin 2.3 g/dL (3.9-5) L 01/25/21 05:32 Albumin/Globulin Ratio 1.0 % 01/25/21 05:32 Lipase 11 units/L (13-60) L 01/24/21 15:11 Vitamin B12 455.1 pg/mL (211-911) 01/25/21 13:32 TSH 1.670 mlU/mL (0.270-4.200) 01/25/21 13:32 Thyroxine (T4) 3.6 ug/dL (4.0-12.0) L 01/25/21 13:32 HCG, Qual Negative (Negative) 01/24/21 15:11 Urine Color Yellow (Yellow) 01/24/21 15:41 Urine Turbidity Slightly-cloudy (Clear) 01/24/21 15:41 Urine pH 5.0 (5.0-7.0) 01/24/21 15:41 Ur Specific [place] 1.023 (1.003-1.030) 01/24/21 15:41 Urine Protein <15 mg/dl mg/dL (Negative) 01/24/21 15:41 Urine Glucose (UA) Neg mg/dL (Negative) 01/24/21 15:41 Urine Ketones Neg mg/dL (Negative) 01/24/21 15:41 Urine Blood Neg (Negative) 01/24/21 15:41 Urine Nitrite Neg (Negative) 01/24/21 15:41 Urine Bilirubin Neg (Negative) 01/24/21 15:41 Urine Urobilinogen < 2.0 mg/dL (<2.0) 01/24/21 15:41 Ur Leukocyte Esterase Mod (Negative) 01/24/21 15:41 Urine WBC (Auto) 29.0 /HPF (0.0-6.0) H 01/24/21 15:41 Urine RBC (Auto) 11.0 /HPF (0.0-6.0) 01/24/21 15:41 U Epithel Cells (Auto) 12.0 /HPF (0-13.0) 01/24/21 15:41 Urine Mucus 2+ /HPF 01/24/21 15:41 Microbiology: Microbiology 01/25/21 Unknown Peripheral/Venous Blood Culture - Preliminary Culture in Progress 01/25/21 Unknown Peripheral/Venous Blood Culture - Preliminary Culture in Progress [place]/IV: Voiding Method Toilet Active Medications - Current Medications Current Medications: Generic Name Dose Route Start Last Admin Trade Name Freq PRN Reason Stop Dose Admin Acetaminophen 650 mg 01/24/21 22:18 Acetaminophen 325 Mg Tab PO Q4H PRN Pain MILD(1-3)/Fever >100.5/CALDERA Famotidine 20 mg 01/25/21 10:00 01/25/21 10:08 Famotidine 20 Mg/2 Ml Inj IV 20 mg BID FAUZIA Administration Ferrous Sulfate 325 mg 01/25/21 10:00 Ferrous Sulfate 325 Mg Tab PO BID FAUZIA Heparin Sodium (Porcine) 5,000 unit 01/25/21 06:00 01/25/21 05:51 Heparin 5,000 Unit/1 Ml Vial SUB-Q 5,000 unit Q8HR [facility]UZIA Administration Hydralazine HCl 10 mg 01/24/21 22:20 Hydralazine 20 Mg/1 Ml Inj IV Q6H PRN htn Hydromorphone HCl 1 mg 01/25/21 17:00 Hydromorphone 1 Mg/1 Ml Inj IV Q4H PRN Pain , Severe (7-10) Dextrose/Sodium Chloride 1,000 mls @ 100 mls/hr 01/24/21 23:00 01/25/21 01:56 D5/0.45ns IV 100 mls/hr DIRECT FAUZIA Administration Ceftriaxone Sodium 2 gm in 100 mls @ 200 mls/hr 01/25/21 21:00 Rocephin/Ns 2 Gm/100 Ml IV Q24H [facility] Protocol Magnesium Oxide 400 mg 01/25/21 10:00 Magnesium Oxide 400 Mg Tab PO QDAY FAUZIA Multivitamins/Iron 1 each 01/25/21 10:00 Fe Fumarate/Fa/Mv, Min Comb#15 Cap (Hemocyte Plus) PO QDAY [facility] Ondansetron HCl 4 mg 01/24/21 22:18 Ondansetron 4 Mg/2 Ml Inj IV Q8H PRN Nausea And Vomiting Potassium Chloride 20 meq 01/25/21 10:00 Potassium Chloride 20 Meq Packet PO QDAY [facility] Sertraline HCl 100 mg 01/25/21 10:00 Sertraline 100 Mg Tab PO QDAY [facility] Sodium Chloride 10 ml 01/25/21 10:00 Sodium Chloride 0.9% 10 Ml Flush Syringe IV BID [facility]UZIA Sodium Chloride 10 ml 01/24/21 22:18 Sodium Chloride 0.9% 10 Ml Flush Syringe IV PRN PRN LINE FLUSH Temazepam 15 mg 01/25/21 22:00 Temazepam 15 Mg Cap PO HS [facility] Nutrition/Malnutrition Assess - Dietary Evaluation Nutrition/Malnutrition Findings: Nutrition Notes Start: 01/25/21 10:58 Freq: Status: Active Protocol: Document 01/25/21 10:58 (Rec: 01/25/21 11:09 [email or web address]) Nutrition Notes Need for Assessment generated from: MD Order Initial or Follow up Assessment Other Pertinent Diagnosis ascites, abd pain, noncomplicane with medication regimen Current Diet NPO Labs/Tests Reviewed Pertinent Medications D5 1/2 NS at 100 ml/hr Height 5 ft 8 in Weight 72.575 kg Usual Body Weight 95.45 kg [place] Body Weight (kg) 63.63 BMI 24.3 Intake Prior to Admission Good Weight change and time frame 24% wt loss in 3 months Weight Status Appropriate Subjective/Other Information MD order for malnutrition. Pt reports eating plenty of fried foods [employer]. She had gastric bypass in 2000. Pt with severe muscle wasting. Pt is hungry now. RN reports she has paged MD for diet. Burn Absent Trauma Absent GI Symptoms Other Current % PO Negligible Minimum of two criteria Yes Interpretation of Weight Loss (severe) >7.5% in 3 months Muscle Mass Moderate Depletion (severe) #1 Nutrition Diagnosis Malnutrition Etiology unknown As Evidenced by Signs and Symptoms 24% wt loss in 3 months, severe muscle wasting Is patient on ventilator? No Is Patient Ambulatory and/or Out of Bed Yes REE-([facility]-ambulatory/OOB) [ [id number] [id number]] Calculation Used for Recommendations [facility] Additional Notes Protein: 87-109g (1.2-1.5g/kg) Fluid: 1 ml/kcal or per MD Nutrition Intervention Change Diet Order: Low sodium when medically able Add Supplement/Snack (indicate name/kcal Ensure Elive BID /protein ) Provides kCal: 700 Provides Protein (gm) 40 Goal #1 Meet at least 75% of protein and energy needs via PO and ONS intakes Goal #2 Wt gain/maintenance Anticipated Discharge Needs: Low sodium Follow-Up By: 01/28/21 Additional Comments FU for diet advancement and intakes
[2021-01-25] MEDS: HYDROmorphone 1 MG/1 ML INJ IV PRN (18:06)
[2021-01-25] MEDS: SERTRALINE 100 MG TAB PO SCH (18:07)
[2021-01-25] MEDS: MAGNESIUM OXIDE 400 MG TAB PO SCH (18:08)
[2021-01-25] MEDS: POTASSIUM CHLORIDE 20 MEQ PACKET PO SCH (18:08)
[2021-01-25] MEDS: FERROUS SULFATE 325 MG TAB PO SCH ×2 (18:08→21:56)
[2021-01-25] MEDS: FE FUMARATE/FA/MV, MIN COMB#15 CAP (HEMOCYTE PLUS) PO SCH (18:08)
[2021-01-25] MEDS: cefTRIAXone/NS 2 GM/100 ML 2 GM/100 ML BAG IV SCH (21:55)
[2021-01-25] MEDS: TEMAZEPAM 15 MG CAP PO SCH (21:59)
[2021-01-26] MEDS: HEPARIN 5,000 UNIT/1 ML VIAL SUB-Q SCH ×3 (01:35→21:20)
[2021-01-26] MEDS: HYDROmorphone 1 MG/1 ML INJ IV PRN ×5 (01:44→22:58)
[2021-01-26 06:07] LABS: Blood Urea Nitrogen 5 mg/dL (7-17); Calcium 7.6 mg/dL (8.4-10.2); Hemolysis Index 3
[2021-01-26 06:10] LABS: BUN/Creatinine Ratio 8
[2021-01-26] MEDS: SERTRALINE 100 MG TAB PO SCH (10:28)
[2021-01-26] MEDS: FERROUS SULFATE 325 MG TAB PO SCH ×2 (10:28→21:20)
[2021-01-26] MEDS: POTASSIUM CHLORIDE 20 MEQ PACKET PO SCH (10:28)
[2021-01-26] MEDS: FE FUMARATE/FA/MV, MIN COMB#15 CAP (HEMOCYTE PLUS) PO SCH (10:29)
[2021-01-26] MEDS: MAGNESIUM OXIDE 400 MG TAB PO SCH (10:29)
[2021-01-26] MEDS: FAMOTIDINE 20 MG/2 ML INJ IV SCH ×2 (10:29→21:20)
--- NOTE | 2021-01-26 12:48 | Gastroenterology Progress Note ---
Assessment and Plan Liver: pt h/o alcohol abuse in past now w/ ascites unclear etiology - imaging w/o signs portal HTN and labs indeterminate for liver disease - awaiting LVP - continue current diet - probable able to dc after LVP with follow up outpt - will follow Subjective Date of service: 01/26/21 Interval history: - pt denies GI complaints at this time, tolerating po Objective - Constitutional Vitals: Temp Pulse Resp BP Pulse Ox 99.0 F 93 H 18 121/85 100 01/24/21 14:56 01/24/21 23:00 01/26/21 02:14 01/24/21 23:00 01/26/21 08:33 General appearance: no acute distress - EENT Eyes: PERRL - Respiratory Respiratory: bilateral: CTA - Cardiovascular Rhythm: regular Heart Sounds: Present: S1 & S2 - Gastrointestinal General gastrointestinal: Present: soft, non-tender, non-distended - Labs CBC & Chem 7: 01/25/21 05:32 01/26/21 05:22 Labs: Laboratory Results - last 24 hr 01/25/21 01/25/21 01/25/21 13:32 13:32 13:32 Sodium Potassium Chloride Carbon Dioxide Anion Gap BUN Creatinine Estimated GFR BUN/Creatinine Ratio Glucose Calcium Magnesium Iron 55 TIBC 134 L Ferritin 18.1 Vitamin B12 455.1 TSH Thyroxine (T4) 01/25/21 01/25/21 01/26/21 13:32 13:32 05:22 Sodium 141 Potassium 3.3 L Chloride 108.7 H Carbon Dioxide 25 Anion Gap 11 BUN 5 L Creatinine 0.6 Estimated GFR > 60 BUN/Creatinine Ratio 8 Glucose 85 Calcium 7.6 L Magnesium 1.70 Iron TIBC Ferritin Vitamin B12 TSH 1.670 Thyroxine (T4) 3.6 L
--- NOTE | 2021-01-26 13:14 | Progress Note ---
Assessment and Plan Assessment and plan: 46-year-old female with past medical history of bariatric surgery in 2000, noncompliance with post bariatric surgical vitamins and minerals, and resulting hypoalbuminemia, electrolyte derangement, and chronic anemia was brought to the emergency room because of right-sided abdominal pain radiating to her right flank/right lower back for 4 days. She reports some associated diarrhea. In the emergency room patient CT scan of the abdomen shows moderate to large amount of abdominal pelvis ascites diffuse mesenteric edema seen throughout #2 cholelithiasis #3 bilateral pleural effusion #4 small bowel loops appear thickened surrounding edema and fluid findings could represent enteritis no evidence for obstruction is seen constipation the distal colon #5 anasarca Also patient potassium is 2.8 and lactic acid 2.30. GI and gen surgery consulted. (1) Abdominal pain Current Visit: Yes Status: Acute Plan to address problem: Tolerating diet D5 half-normal saline at the rate of 100 cc/h. CT abdomen reviewed (2) Lactic acidosis Current Visit: Yes Status: Acute Plan to address problem: Resolved with fluids (3) Ascites Current Visit: Yes Status: Acute Plan to address problem: GI recommends paracentesis, orders placed (4) Hypokalemia Current Visit: Yes Status: Acute Plan to address problem: Replete PRN (5) Hypomagnesemia Current Visit: Yes Status: Acute Plan to address problem: Replete PRN (6) Noncompliance with medication regimen Current Visit: Yes Status: Acute Plan to address problem: pt to f/u with bariatric surgeon in outpt setting (7) Hypoalbuminemia Current Visit: Yes Status: Acute Plan to address problem: Patient is getting IV albumin. nutrition rec low sodium diet vitamin supplementation (8) DVT prophylaxis Current Visit: Yes Status: Acute Plan to address problem: Heparin 5000 units subcu every 8 hours for DVT prophylaxis and Pepcid 20 mg IV every 12 hours for GI prophylaxis. DISPOSITION: Low sodium diet, pain control, paracentesis planned with cytology labs History Interval history: 01/25: pt continues to have abdominal pain, will start diet, pt w/o n/v. No surgic al intervention for now, GI recommends paracentesis 01/26 pt with mild abd pain, tolerating diet. no n/v Hospitalist Physical - Physical exam Narrative exam: General appearance: Present: no acute distress, well-nourished EENT: PERRL, EOM intact, hearing intact, clear oral mucosa, dentition normal Neck: Present: supple, normal ROM Respiratory: bilateral: CTA, negative: rales, rhonchi, wheezing Cardiovascular: Rhythm: regular Heart Sounds: Present: S1 & S2. Absent: gallop, rub Extremities: no ischemia, No edema, normal temperature, normal color, Full ROM Abdominal: abdominal scar, tender to touch, non-distended, decreased bowel sounds Integumentary: Present: clear, warm, dry Psychiatric: appropriate mood/affect, intact judgment & insight Neurologic: CNII-XII intact, moves all extremities - Constitutional Vitals: Temp Pulse Resp BP Pulse Ox 99.0 F 93 H 18 121/85 100 01/24/21 14:56 01/24/21 23:00 01/26/21 02:14 01/24/21 23:00 01/26/21 08:33 General appearance: Present: no acute distress, well-nourished HEART Score - HEART Score Troponin: Troponin T < 0.010 ng/mL (0.00-0.029) 01/24/21 17:22 Results - Labs CBC & Chem 7: 01/25/21 05:32 01/26/21 05:22 Labs: Laboratory Last Values WBC 7.7 K/mm3 (4.5-11.0) 01/25/21 05:32 RBC 2.83 M/mm3 (3.65-5.03) L 01/25/21 05:32 Hgb 7.8 gm/dl (10.1-14.3) L 01/25/21 05:32 Hct 23.4 % (30.3-42.9) L 01/25/21 05:32 MCV 83 fl (79-97) 01/25/21 05:32 MCH 28 pg (28-32) 01/25/21 05:32 MCHC 33 % (30-34) 01/25/21 05:32 RDW 15.1 % (13.2-15.2) 01/25/21 05:32 Plt Count 312 K/mm3 (140-440) 01/25/21 05:32 Lymph % (Auto) 26.6 % (13.4-35.0) 01/25/21 05:32 [place] % (Auto) 10.4 % (0.0-7.3) H 01/25/21 05:32 Eos % (Auto) 0.0 % (0.0-4.3) 01/25/21 05:32 Baso % (Auto) 0.2 % (0.0-1.8) 01/25/21 05:32 Lymph # (Auto) 2.0 K/mm3 (1.2-5.4) 01/25/21 05:32 [place] # (Auto) 0.8 K/mm3 (0.0-0.8) 01/25/21 05:32 Eos # (Auto) 0.0 K/mm3 (0.0-0.4) 01/25/21 05:32 Baso # (Auto) 0.0 K/mm3 (0.0-0.1) 01/25/21 05:32 Seg Neutrophils % 62.8 % (40.0-70.0) 01/25/21 05:32 Seg Neutrophils # 4.8 K/mm3 (1.8-7.7) 01/25/21 05:32 PT 14.8 Sec. (12.2-14.9) 01/24/21 17:22 INR 1.18 (0.87-1.13) H 01/24/21 17:22 D-Dimer 475.83 ng/mlDDU (0-234) H 01/24/21 17:22 Sodium 141 mmol/L (137-145) 01/26/21 05:22 Potassium 3.3 mmol/L (3.6-5.0) L 01/26/21 05:22 Chloride 108.7 mmol/L (98-107) H 01/26/21 05:22 Carbon Dioxide 25 mmol/L (22-30) 01/26/21 05:22 Anion Gap 11 mmol/L 01/26/21 05:22 BUN 5 mg/dL (7-17) L 01/26/21 05:22 Creatinine 0.6 mg/dL (0.6-1.2) 01/26/21 05:22 Estimated GFR > 60 ml/min 01/26/21 05:22 BUN/Creatinine Ratio 8 % 01/26/21 05:22 Glucose 85 mg/dL (65-100) 01/26/21 05:22 Lactic Acid 0.90 mmol/L (0.7-2.0) 01/25/21 05:32 Calcium 7.6 mg/dL (8.4-10.2) L 01/26/21 05:22 Magnesium 1.70 mg/dL (1.7-2.3) 01/26/21 05:22 Iron 55 ug/dL (37-170) 01/25/21 13:32 TIBC 134 mcg/dL (250-450) L 01/25/21 13:32 Ferritin 18.1 ng/mL (10.0-200.0) 01/25/21 13:32 Total Bilirubin 0.30 mg/dL (0.1-1.2) 01/25/21 05:32 AST 25 units/L (5-40) 01/25/21 05:32 ALT 20 units/L (7-56) 01/25/21 05:32 Alkaline Phosphatase 119 units/L (35-129) 01/25/21 05:32 Troponin T < 0.010 ng/mL (0.00-0.029) 01/24/21 17:22 NT-Pro-B Natriuret Pep 214.4 pg/mL (0-450) 01/24/21 20:26 Total Protein 4.7 g/dL (6.3-8.2) L 01/25/21 05:32 Albumin 2.3 g/dL (3.9-5) L 01/25/21 05:32 Albumin/Globulin Ratio 1.0 % 01/25/21 05:32 Lipase 11 units/L (13-60) L 01/24/21 15:11 Vitamin B12 455.1 pg/mL (211-911) 01/25/21 13:32 TSH 1.670 mlU/mL (0.270-4.200) 01/25/21 13:32 Thyroxine (T4) 3.6 ug/dL (4.0-12.0) L 01/25/21 13:32 HCG, Qual Negative (Negative) 01/24/21 15:11 Urine Color Yellow (Yellow) 01/24/21 15:41 Urine Turbidity Slightly-cloudy (Clear) 01/24/21 15:41 Urine pH 5.0 (5.0-7.0) 01/24/21 15:41 Ur Specific [place] 1.023 (1.003-1.030) 01/24/21 15:41 Urine Protein <15 mg/dl mg/dL (Negative) 01/24/21 15:41 Urine Glucose (UA) Neg mg/dL (Negative) 01/24/21 15:41 Urine Ketones Neg mg/dL (Negative) 01/24/21 15:41 Urine Blood Neg (Negative) 01/24/21 15:41 Urine Nitrite Neg (Negative) 01/24/21 15:41 Urine Bilirubin Neg (Negative) 01/24/21 15:41 Urine Urobilinogen < 2.0 mg/dL (<2.0) 01/24/21 15:41 Ur Leukocyte Esterase Mod (Negative) 01/24/21 15:41 Urine WBC (Auto) 29.0 /HPF (0.0-6.0) H 01/24/21 15:41 Urine RBC (Auto) 11.0 /HPF (0.0-6.0) 01/24/21 15:41 U Epithel Cells (Auto) 12.0 /HPF (0-13.0) 01/24/21 15:41 Urine Mucus 2+ /HPF 01/24/21 15:41 Microbiology: Microbiology 01/24/21 15:41 Urine,Clean Catch Urine Culture - Preliminary 01/25/21 Unknown Peripheral/Venous Blood Culture - Preliminary NO GROWTH AFTER 24 HOURS 01/25/21 Unknown Peripheral/Venous Blood Culture - Preliminary NO GROWTH AFTER 24 HOURS Wall[place]/IV: Voiding Method Toilet Active Medications - Current Medications Current Medications: Generic Name Dose Route Start Last Admin Trade Name Freq PRN Reason Stop Dose Admin Acetaminophen 650 mg 01/24/21 22:18 Acetaminophen 325 Mg Tab PO Q4H PRN Pain MILD(1-3)/Fever >100.5/CALDERA Famotidine 20 mg 01/25/21 10:00 01/26/21 10:29 Famotidine 20 Mg/2 Ml Inj IV 20 mg BID FAUZIA Administration Ferrous Sulfate 325 mg 01/25/21 10:00 01/26/21 10:28 Ferrous Sulfate 325 Mg Tab PO 325 mg BID FAUZIA Administration Heparin Sodium (Porcine) 5,000 unit 01/25/21 06:00 01/26/21 06:03 Heparin 5,000 Unit/1 Ml Vial SUB-Q 5,000 unit Q8HR FAUZIA Administration Hydralazine HCl 10 mg 01/24/21 22:20 Hydralazine 20 Mg/1 Ml Inj IV Q6H PRN htn Hydromorphone HCl 1 mg 01/25/21 17:00 01/26/21 08:41 Hydromorphone 1 Mg/1 Ml Inj IV 1 mg Q4H PRN Administration Pain , Severe (7-10) Dextrose/Sodium Chloride 1,000 mls @ 100 mls/hr 01/24/21 23:00 01/25/21 23:06 D5/0.45ns IV 100 mls/hr DIRECT FAUZIA Administration Ceftriaxone Sodium 2 gm in 100 mls @ 200 mls/hr 01/25/21 21:00 01/25/21 21:55 Rocephin/Ns 2 Gm/100 Ml IV 200 mls/hr Q24H FAUZIA Administration Protocol Magnesium Oxide 400 mg 01/25/21 10:00 01/26/21 10:29 Magnesium Oxide 400 Mg Tab PO 400 mg QDAY FAUZIA Administration Multivitamins/Iron 1 each 01/25/21 10:00 01/26/21 10:29 Fe Fumarate/Fa/Mv, Min Comb#15 Cap (Hemocyte Plus) PO 1 each QDAY FAUZIA Administration Ondansetron HCl 4 mg 01/24/21 22:18 Ondansetron 4 Mg/2 Ml Inj IV Q8H PRN Nausea And Vomiting Potassium Chloride 20 meq 01/25/21 10:00 01/26/21 10:28 Potassium Chloride 20 Meq Packet PO 20 meq QDAY FAUZIA Administration Sertraline HCl 100 mg 01/25/21 10:00 01/26/21 10:28 Sertraline 100 Mg Tab PO 100 mg QDAY FAUZIA Administration Sodium Chloride 10 ml 01/25/21 10:00 01/26/21 10:29 Sodium Chloride 0.9% 10 Ml Flush Syringe IV 10 ml BID FAUZIA Administration Sodium Chloride 10 ml 01/24/21 22:18 Sodium Chloride 0.9% 10 Ml Flush Syringe IV PRN PRN LINE FLUSH Temazepam 15 mg 01/25/21 22:00 01/25/21 21:59 Temazepam 15 Mg Cap PO 15 mg HS FAUZIA Administration Nutrition/Malnutrition Assess - Dietary Evaluation Nutrition/Malnutrition Findings: Nutrition Notes Start: 01/25/21 10:58 Freq: Status: Active Protocol: Document 01/25/21 10:58 JULES (Rec: 01/25/21 11:09 JULES [id number]) Nutrition Notes Need for Assessment generated from: MD Order Initial or Follow up Assessment Other Pertinent Diagnosis ascites, abd pain, noncomplicane with medication regimen Current Diet NPO Labs/Tests Reviewed Pertinent Medications D5 1/2 NS at 100 ml/hr Height 5 ft 8 in Weight 72.575 kg Usual Body Weight 95.45 kg [place] Body Weight (kg) 63.63 BMI 24.3 Intake Prior to Admission Good Weight change and time frame 24% wt loss in 3 months Weight Status Appropriate Subjective/Other Information MD order for malnutrition. Pt reports eating plenty of fried foods [employer]. She had gastric bypass in 2000. Pt with severe muscle wasting. Pt is hungry now. RN reports she has paged MD for diet. Burn Absent Trauma Absent GI Symptoms Other Current % PO Negligible Minimum of two criteria Yes Interpretation of Weight Loss (severe) >7.5% in 3 months Muscle Mass Moderate Depletion (severe) #1 Nutrition Diagnosis Malnutrition Etiology unknown As Evidenced by Signs and Symptoms 24% wt loss in 3 months, severe muscle wasting Is patient on ventilator? No Is Patient Ambulatory and/or Out of Bed Yes REE-([facility]-ambulatory/OOB) [ 1825.525 [id number]] Calculation Used for Recommendations [facility] Additional Notes Protein: 87-109g (1.2-1.5g/kg) Fluid: 1 ml/kcal or per MD Nutrition Intervention Change Diet Order: Low sodium when medically able Add Supplement/Snack (indicate name/kcal Ensure Elive BID /protein ) Provides kCal: 700 Provides Protein (gm) 40 Goal #1 Meet at least 75% of protein and energy needs via PO and ONS intakes Goal #2 Wt gain/maintenance Anticipated Discharge Needs: Low sodium Follow-Up By: 01/28/21 Additional Comments FU for diet advancement and intakes
[2021-01-26] MEDS: D5W/0.45% NACL 1,000 ML IV SCH (18:47)
[2021-01-26] MEDS: TEMAZEPAM 15 MG CAP PO SCH (21:20)
[2021-01-26] MEDS: cefTRIAXone/NS 2 GM/100 ML 2 GM/100 ML BAG IV SCH (21:20)
[2021-01-27] MEDS: D5W/0.45% NACL 1,000 ML IV SCH (04:58)
[2021-01-27] MEDS: HEPARIN 5,000 UNIT/1 ML VIAL SUB-Q SCH ×3 (04:59→21:43)
[2021-01-27] MEDS: HYDROmorphone 1 MG/1 ML INJ IV PRN ×4 (04:59→18:31)
[2021-01-27] MEDS: MAGNESIUM OXIDE 400 MG TAB PO SCH (13:20)
[2021-01-27] MEDS: FE FUMARATE/FA/MV, MIN COMB#15 CAP (HEMOCYTE PLUS) PO SCH (13:20)
[2021-01-27] MEDS: POTASSIUM CHLORIDE 20 MEQ PACKET PO SCH (13:20)
[2021-01-27] MEDS: FAMOTIDINE 20 MG TAB PO SCH ×2 (13:20→21:42)
[2021-01-27] MEDS: FERROUS SULFATE 325 MG TAB PO SCH ×2 (13:20→21:42)
[2021-01-27] MEDS: SERTRALINE 100 MG TAB PO SCH (13:20)
[2021-01-27 14:34] LABS: Hematocrit 23.5 % (30.3-42.9); Hemoglobin 7.7 gm/dl (10.1-14.3); Mean Corpuscular HGB Conc 33 % (30-34); Mean Corpuscular Volume 82 fl (79-97); Platelet Count 337 K/mm3 (140-440); Red Blood Count 2.86 M/mm3 (3.65-5.03); Red Cell Distribution Width 15.6 % (13.2-15.2)
[2021-01-27 14:57] LABS: Blood Urea Nitrogen 2 mg/dL (7-17); Calcium 8.2 mg/dL (8.4-10.2); Hemolysis Index 0
[2021-01-27 14:59] LABS: BUN/Creatinine Ratio 3
--- NOTE | 2021-01-27 15:14 | Progress Note ---
Assessment and Plan Assessment and plan: 46-year-old female with past medical history of bariatric surgery in 2000, noncompliance with post bariatric surgical vitamins and minerals, and resulting hypoalbuminemia, electrolyte derangement, and chronic anemia was brought to the emergency room because of right-sided abdominal pain radiating to her right flank/right lower back for 4 days. She reports some associated diarrhea. In the emergency room patient CT scan of the abdomen shows moderate to large amount of abdominal pelvis ascites diffuse mesenteric edema seen throughout #2 cholelithiasis #3 bilateral pleural effusion #4 small bowel loops appear thickened surrounding edema and fluid findings could represent enteritis no evidence for obstruction is seen constipation the distal colon #5 anasarca Also patient potassium is 2.8 and lactic acid 2.30. GI and gen surgery consulted. (1) Abdominal pain Current Visit: Yes Status: Acute Plan to address problem: Tolerating diet D5 half-normal saline at the rate of 100 cc/h. CT abdomen reviewed (2) Lactic acidosis Current Visit: Yes Status: Acute Plan to address problem: Resolved with fluids (3) Ascites Current Visit: Yes Status: Acute Plan to address problem: GI recommends paracentesis US guided ultrasound Labs ordered (4) Hypokalemia Current Visit: Yes Status: Acute Plan to address problem: Replete PRN (5) Hypomagnesemia Current Visit: Yes Status: Acute Plan to address problem: Replete PRN (6) Noncompliance with medication regimen Current Visit: Yes Status: Acute Plan to address problem: pt to f/u with bariatric surgeon in outpt setting (7) Hypoalbuminemia Current Visit: Yes Status: Acute Plan to address problem: Patient is getting IV albumin. nutrition rec low sodium diet vitamin supplementation (8) DVT prophylaxis Current Visit: Yes Status: Acute Plan to address problem: Heparin 5000 units subcu every 8 hours for DVT prophylaxis and Pepcid 20 mg IV every 12 hours for GI prophylaxis. DISPOSITION: Low sodium diet, pain control, paracentesis planned with cytology labs for Thursday. After paracentesis, pt could be discharged with follow up with GI History Interval history: 01/25: pt continues to have abdominal pain, will start diet, pt w/o n/v. No surgical intervention for now, GI recommends paracentesis 01/26 pt with mild abd pain, tolerating diet. no n/v 01/27 mild abd pain, no n/v, mild back pain Hospitalist Physical - Physical exam Narrative exam: General appearance: Present: no acute distress, well-nourished EENT: PERRL, EOM intact, hearing intact, clear oral mucosa, dentition normal Neck: Present: supple, normal ROM Respiratory: bilateral: CTA, negative: rales, rhonchi, wheezing Cardiovascular: Rhythm: regular Heart Sounds: Present: S1 & S2. Absent: gallop, rub Extremities: no ischemia, No edema, normal temperature, normal color, Full ROM Abdominal: abdominal scar, tender to touch in right quadrant, non-distended, decreased bowel sounds Integumentary: Present: clear, warm, dry Psychiatric: appropriate mood/affect, intact judgment & insight Neurologic: CNII-XII intact, moves all extremities - Constitutional Vitals: Temp Pulse Resp BP Pulse Ox 97.5 F L 82 18 136/95 100 01/27/21 05:42 01/27/21 05:42 01/27/21 05:42 01/27/21 05:42 01/27/21 09:49 General appearance: Present: no acute distress, well-nourished HEART Score - HEART Score Troponin: Troponin T < 0.010 ng/mL (0.00-0.029) 01/24/21 17:22 Results - Labs CBC & Chem 7: 01/27/21 14:08 01/27/21 14:08 Labs: Laboratory Last Values WBC 4.7 K/mm3 (4.5-11.0) 01/27/21 14:08 RBC 2.86 M/mm3 (3.65-5.03) L 01/27/21 14:08 Hgb 7.7 gm/dl (10.1-14.3) L 01/27/21 14:08 Hct 23.5 % (30.3-42.9) L 01/27/21 14:08 MCV 82 fl (79-97) 01/27/21 14:08 MCH 27 pg (28-32) L 01/27/21 14:08 MCHC 33 % (30-34) 01/27/21 14:08 RDW 15.6 % (13.2-15.2) H 01/27/21 14:08 Plt Count 337 K/mm3 (140-440) 01/27/21 14:08 Lymph % (Auto) 26.6 % (13.4-35.0) 01/25/21 05:32 [place] % (Auto) 10.4 % (0.0-7.3) H 01/25/21 05:32 Eos % (Auto) 0.0 % (0.0-4.3) 01/25/21 05:32 Baso % (Auto) 0.2 % (0.0-1.8) 01/25/21 05:32 Lymph # (Auto) 2.0 K/mm3 (1.2-5.4) 01/25/21 05:32 [place] # (Auto) 0.8 K/mm3 (0.0-0.8) 01/25/21 05:32 Eos # (Auto) 0.0 K/mm3 (0.0-0.4) 01/25/21 05:32 Baso # (Auto) 0.0 K/mm3 (0.0-0.1) 01/25/21 05:32 Seg Neutrophils % 62.8 % (40.0-70.0) 01/25/21 05:32 Seg Neutrophils # 4.8 K/mm3 (1.8-7.7) 01/25/21 05:32 PT 14.8 Sec. (12.2-14.9) 01/24/21 17:22 INR 1.18 (0.87-1.13) H 01/24/21 17:22 D-Dimer 475.83 ng/mlDDU (0-234) H 01/24/21 17:22 Sodium 138 mmol/L (137-145) 01/27/21 14:08 Potassium 4.0 mmol/L (3.6-5.0) D 01/27/21 14:08 Chloride 105.6 mmol/L (98-107) 01/27/21 14:08 Carbon Dioxide 27 mmol/L (22-30) 01/27/21 14:08 Anion Gap 9 mmol/L 01/27/21 14:08 BUN 2 mg/dL (7-17) L 01/27/21 14:08 Creatinine 0.7 mg/dL (0.6-1.2) 01/27/21 14:08 Estimated GFR > 60 ml/min 01/27/21 14:08 BUN/Creatinine Ratio 3 % 01/27/21 14:08 Glucose 75 mg/dL (65-100) 01/27/21 14:08 Lactic Acid 0.90 mmol/L (0.7-2.0) 01/25/21 05:32 Calcium 8.2 mg/dL (8.4-10.2) L 01/27/21 14:08 Magnesium 1.70 mg/dL (1.7-2.3) 01/26/21 05:22 Iron 55 ug/dL (37-170) 01/25/21 13:32 TIBC 134 mcg/dL (250-450) L 01/25/21 13:32 Ferritin 18.1 ng/mL (10.0-200.0) 01/25/21 13:32 Total Bilirubin 0.30 mg/dL (0.1-1.2) 01/25/21 05:32 AST 25 units/L (5-40) 01/25/21 05:32 ALT 20 units/L (7-56) 01/25/21 05:32 Alkaline Phosphatase 119 units/L (35-129) 01/25/21 05:32 Troponin T < 0.010 ng/mL (0.00-0.029) 01/24/21 17:22 NT-Pro-B Natriuret Pep 214.4 pg/mL (0-450) 01/24/21 20:26 Total Protein 4.7 g/dL (6.3-8.2) L 01/25/21 05:32 Albumin 2.3 g/dL (3.9-5) L 01/25/21 05:32 Albumin/Globulin Ratio 1.0 % 01/25/21 05:32 Lipase 11 units/L (13-60) L 01/24/21 15:11 Vitamin B12 455.1 pg/mL (211-911) 01/25/21 13:32 TSH 1.670 mlU/mL (0.270-4.200) 01/25/21 13:32 Thyroxine (T4) 3.6 ug/dL (4.0-12.0) L 01/25/21 13:32 HCG, Qual Negative (Negative) 01/24/21 15:11 Urine Color Yellow (Yellow) 01/24/21 15:41 Urine Turbidity Slightly-cloudy (Clear) 01/24/21 15:41 Urine pH 5.0 (5.0-7.0) 01/24/21 15:41 Ur Specific [place] 1.023 (1.003-1.030) 01/24/21 15:41 Urine Protein <15 mg/dl mg/dL (Negative) 01/24/21 15:41 Urine Glucose (UA) Neg mg/dL (Negative) 01/24/21 15:41 Urine Ketones Neg mg/dL (Negative) 01/24/21 15:41 Urine Blood Neg (Negative) 01/24/21 15:41 Urine Nitrite Neg (Negative) 01/24/21 15:41 Urine Bilirubin Neg (Negative) 01/24/21 15:41 Urine Urobilinogen < 2.0 mg/dL (<2.0) 01/24/21 15:41 Ur Leukocyte Esterase Mod (Negative) 01/24/21 15:41 Urine WBC (Auto) 29.0 /HPF (0.0-6.0) H 01/24/21 15:41 Urine RBC (Auto) 11.0 /HPF (0.0-6.0) 01/24/21 15:41 U Epithel Cells (Auto) 12.0 /HPF (0-13.0) 01/24/21 15:41 Urine Mucus 2+ /HPF 01/24/21 15:41 Microbiology: Microbiology 01/24/21 15:41 Urine,Clean Catch Urine Culture - Final 01/25/21 Unknown Peripheral/Venous Blood Culture - Preliminary NO GROWTH AFTER 48 HOURS 01/25/21 Unknown Peripheral/Venous Blood Culture - Preliminary NO GROWTH AFTER 48 HOURS [place]/IV: Voiding Method Toilet Active Medications - Current Medications Current Medications: Generic Name Dose Route Start Last Admin Trade Name Freq PRN Reason Stop Dose Admin Acetaminophen 650 mg 01/24/21 22:18 Acetaminophen 325 Mg Tab PO Q4H PRN Pain MILD(1-3)/Fever >100.5/CALDERA Famotidine 20 mg 01/27/21 10:00 01/27/21 13:20 Famotidine 20 Mg Tab PO 20 mg BID FAUZIA Administration Ferrous Sulfate 325 mg 01/25/21 10:00 01/27/21 13:20 Ferrous Sulfate 325 Mg Tab PO 325 mg BID FAUZIA Administration Heparin Sodium (Porcine) 5,000 unit 01/25/21 06:00 01/27/21 13:20 Heparin 5,000 Unit/1 Ml Vial SUB-Q 5,000 unit Q8HR FAUZIA Administration Hydralazine HCl 10 mg 01/24/21 22:20 Hydralazine 20 Mg/1 Ml Inj IV Q6H PRN htn Hydromorphone HCl 1 mg 01/25/21 17:00 01/27/21 13:17 Hydromorphone 1 Mg/1 Ml Inj IV 1 mg Q4H PRN Administration Pain , Severe (7-10) Dextrose/Sodium Chloride 1,000 mls @ 100 mls/hr 01/24/21 23:00 01/27/21 04:58 D5/0.45ns IV 100 mls/hr DIRECT FAUZIA Administration Ceftriaxone Sodium 2 gm in 100 mls @ 200 mls/hr 01/25/21 21:00 01/26/21 21:20 Rocephin/Ns 2 Gm/100 Ml IV 200 mls/hr Q24H FAUZIA Administration Protocol Magnesium Oxide 400 mg 01/25/21 10:00 01/27/21 13:20 Magnesium Oxide 400 Mg Tab PO 400 mg QDAY FAUZIA Administration Multivitamins/Iron 1 each 01/25/21 10:00 01/27/21 13:20 Fe Fumarate/Fa/Mv, Min Comb#15 Cap (Hemocyte Plus) PO 1 each QDAY FAUZIA Administration Ondansetron HCl 4 mg 01/24/21 22:18 Ondansetron 4 Mg/2 Ml Inj IV Q8H PRN Nausea And Vomiting Potassium Chloride 20 meq 01/25/21 10:00 01/27/21 13:20 Potassium Chloride 20 Meq Packet PO 20 meq QDAY FAUZIA Administration Sertraline HCl 100 mg 01/25/21 10:00 01/27/21 13:20 Sertraline 100 Mg Tab PO 100 mg QDAY FAUZIA Administration Sodium Chloride 10 ml 01/25/21 10:00 01/27/21 13:21 Sodium Chloride 0.9% 10 Ml Flush Syringe IV 10 ml BID FAUZIA Administration Sodium Chloride 10 ml 01/24/21 22:18 Sodium Chloride 0.9% 10 Ml Flush Syringe IV PRN PRN LINE FLUSH Temazepam 15 mg 01/25/21 22:00 01/26/21 21:20 Temazepam 15 Mg Cap PO 15 mg HS FAUZIA Administration Nutrition/Malnutrition Assess - Dietary Evaluation Nutrition/Malnutrition Findings: Nutrition Notes Start: 04/09/21 10:58 Freq: Status: Active Protocol: Document 01/25/21 10:58 JULES (Rec: 01/25/21 11:09 JULES [id number]) Nutrition Notes Need for Assessment generated from: MD Order Initial or Follow up Assessment Other Pertinent Diagnosis ascites, abd pain, noncomplicane with medication regimen Current Diet NPO Labs/Tests Reviewed Pertinent Medications D5 1/2 NS at 100 ml/hr Height 5 ft 8 in Weight 72.575 kg Usual Body Weight 95.45 kg [place] Body Weight (kg) 63.63 BMI 24.3 Intake Prior to Admission Good Weight change and time frame 24% wt loss in 3 months Weight Status Appropriate Subjective/Other Information MD order for malnutrition. Pt reports eating plenty of fried foods [employer]. She had gastric bypass in 2000. Pt with severe muscle wasting. Pt is hungry now. RN reports she has paged MD for diet. Burn Absent Trauma Absent GI Symptoms Other Current % PO Negligible Minimum of two criteria Yes Interpretation of Weight Loss (severe) >7.5% in 3 months Muscle Mass Moderate Depletion (severe) #1 Nutrition Diagnosis Malnutrition Etiology unknown As Evidenced by Signs and Symptoms 24% wt loss in 3 months, severe muscle wasting Is patient on ventilator? No Is Patient Ambulatory and/or Out of Bed Yes REE-([facility]-ambulatory/OOB) [ 1825.525 NUTR.[id number]] Calculation Used for Recommendations [facility] Additional Notes Protein: 87-109g (1.2-1.5g/kg) Fluid: 1 ml/kcal or per MD Nutrition Intervention Change Diet Order: Low sodium when medically able Add Supplement/Snack (indicate name/kcal Ensure Elive BID /protein ) Provides kCal: 700 Provides Protein (gm) 40 Goal #1 Meet at least 75% of protein and energy needs via PO and ONS intakes Goal #2 Wt gain/maintenance Anticipated Discharge Needs: Low sodium Follow-Up By: 01/28/21 Additional Comments FU for diet advancement and intakes
--- NOTE | 2021-01-27 16:53 | Gastroenterology Progress Note ---
Assessment and Plan Liver: pt h/o alcohol abuse in past now w/ ascites unclear etiology - imaging w/o signs portal HTN and labs indeterminate for liver disease - awaiting LVP - continue current diet - probable able to dc after LVP with follow up outpt - will follow Subjective Date of service: 01/27/21 Interval history: - no specific complaints overnight Objective - Constitutional Vitals: Temp Pulse Resp BP Pulse Ox 97.5 F L 82 18 136/95 100 01/27/21 05:42 01/27/21 05:42 01/27/21 05:42 01/27/21 05:42 01/27/21 09:49 General appearance: no acute distress - EENT Eyes: PERRL - Respiratory Respiratory: bilateral: CTA - Cardiovascular Rhythm: regular Heart Sounds: Present: S1 & S2 - Gastrointestinal General gastrointestinal: Present: soft, non-tender, non-distended - Labs CBC & Chem 7: 01/27/21 14:08 01/27/21 14:08 Labs: Laboratory Results - last 24 hr 01/27/21 01/27/21 14:08 14:08 WBC 4.7 RBC 2.86 L Hgb 7.7 L Hct 23.5 L MCV 82 MCH 27 L MCHC 33 RDW 15.6 H Plt Count 337 Sodium 138 Potassium 4.0 D Chloride 105.6 Carbon Dioxide 27 Anion Gap 9 BUN 2 L Creatinine 0.7 Estimated GFR > 60 BUN/Creatinine Ratio 3 Glucose 75 Calcium 8.2 L
[2021-01-27] MEDS: cefTRIAXone/NS 2 GM/100 ML 2 GM/100 ML BAG IV SCH (21:42)
[2021-01-27] MEDS: TEMAZEPAM 15 MG CAP PO SCH (21:43)
[2021-01-28] MEDS: D5W/0.45% NACL 1,000 ML IV SCH (03:40)
[2021-01-28] MEDS: HYDROmorphone 1 MG/1 ML INJ IV PRN ×2 (03:47→10:51)
[2021-01-28] MEDS: HEPARIN 5,000 UNIT/1 ML VIAL SUB-Q SCH ×2 (05:37→15:46)
--- NOTE | 2021-01-28 09:34 | Ultrasound Report ---
LIMITED RUQ ABDOMINAL ULTRASOUND INDICATION: abdominal ascites. COMPARISON: No relevant prior imaging study available. FINDINGS: All 4 quadrants of the abdomen were scanned to evaluate for ascites. No ascitic fluid is detected on ultrasound. Trace right pleural effusion is partially imaged. IMPRESSION: No evidence for ascites. Trace right pleural effusion.. Signer Name: Shiv Ramsey Jr, MD Signed: 01/28/2021 9:29 AM Workstation Name: [id number]
[2021-01-28] MEDS: FAMOTIDINE 20 MG TAB PO SCH (10:41)
[2021-01-28] MEDS: FERROUS SULFATE 325 MG TAB PO SCH (10:41)
[2021-01-28] MEDS: FE FUMARATE/FA/MV, MIN COMB#15 CAP (HEMOCYTE PLUS) PO SCH (10:41)
[2021-01-28] MEDS: MAGNESIUM OXIDE 400 MG TAB PO SCH (10:41)
[2021-01-28] MEDS: SERTRALINE 100 MG TAB PO SCH (10:41)
[2021-01-28] MEDS: POTASSIUM CHLORIDE 20 MEQ PACKET PO SCH (10:41)
--- NOTE | 2021-01-28 11:26 | Discharge Summary ---
Providers - Providers Date of Admission: 01/27/21 10:50 Date of discharge: 01/28/21 Attending physician: MICHAEL WIGGINS MD 01/24/21 21:17 Consult to Physician [CONS] Urgent Comment: Dr. Patten spoke with Dr. Gomez @ 2 Consulting Provider: OLAF GOMEZ Physician Instructions: Reason For Exam: abd pain ascites 01/24/21 21:41 Consult to Physician [CONS] Urgent Comment: Dr. Patten spoke with Dr. Maddox @ 429 Consulting Provider: MICAELA MADDOX Physician Instructions: Reason For Exam: abd pain ascites 01/24/21 22:34 Consult to Dietitian/Nutrition [CONS] Routine Physician Instructions: Reason For Exam: Reason for Consult: Malnutrition Primary care physician: TURNTABLE MAN Hospitalization Reason for admission: abdominal pain Condition: Stable Hospital course: Assessment and plan: 46-year-old female with past medical history of bariatric surgery in 2000, noncompliance with post bariatric surgical vitamins and minerals, and resulting hypoalbuminemia, electrolyte derangement, and chronic anemia was brought to the emergency room because of right-sided abdominal pain radiating to her right flank/right lower back for 4 days. She reports some associated diarrhea. In the emergency room patient CT scan of the abdomen shows moderate to large amount of abdominal pelvis ascites diffuse mesenteric edema seen throughout #2 cholelithiasis #3 bilateral pleural effusion #4 small bowel loops appear thickened surrounding edema and fluid findings could represent enteritis no evidence for obstruction is seen constipation the distal colon #5 anasarca Also patient potassium is 2.8 and lactic acid 2.30. GI and gen surgery consulted. (1) Abdominal pain w/hx of gastric bypass surgery 2000 Current Visit: Yes Status: Acute Plan to address problem: Tolerating diet D5 half-normal saline at the rate of 100 cc/h. CT abdomen reviewed, fluid and possible entercolitis (2) Lactic acidosis Current Visit: Yes Status: Acute Plan to address problem: Resolved with fluids (3) Ascites Current Visit: Yes Status: Acute Plan to address problem: GI recommends paracentesis US guided ultrasound cancelled, no fluid to drain pt to follow up with GI in outpt setting (4) Hypokalemia Current Visit: Yes Status: Acute Plan to address problem: Replete PRN (5) Hypomagnesemia Current Visit: Yes Status: Acute Plan to address problem: Replete PRN (6) Noncompliance with medication regimen Current Visit: Yes Status: Acute Plan to address problem: pt to f/u with bariatric surgeon in outpt setting (7) Hypoalbuminemia Current Visit: Yes Status: Acute Plan to address problem: Patient is getting IV albumin. nutrition rec low sodium diet vitamin supplementation History Interval history: 01/25: pt continues to have abdominal pain, will start diet, pt w/o n/v. No surgical intervention for now, GI recommends paracentesis 01/26 pt with mild abd pain, tolerating diet. no n/v 01/27 mild abd pain, no n/v, mild back pain 01/28 abd pain mostly resolved, no paracentesis- no fluid present. pt tolerating diet. pt can be discharged home, follow up with pcp and gastroenterology Disposition: -01 TO HOME OR SELFCARE Final Discharge Diagnosis (Prints w/discharge instructions): Abdominal pain. Lactic acidosis. Ascites. Hypokalemia. Hypomagnesemia. Hypoalbuminemia Core Measure Documentation - Palliative Care Palliative Care/ Comfort Measures: Not Applicable - Core Measures Any of the following diagnoses?: none Exam - Physical Exam Narrative exam: General appearance: Present: no acute distress, well-nourished EENT: PERRL, EOM intact, hearing intact, clear oral mucosa, dentition normal Neck: Present: supple, normal ROM Respiratory: bilateral: CTA, negative: rales, rhonchi, wheezing Cardiovascular: Rhythm: regular Heart Sounds: Present: S1 & S2. Absent: gallop, rub Extremities: no ischemia, No edema, normal temperature, normal color, Full ROM Abdominal: abdominal scar, nontender to touch non-distended, decreased bowel sounds Integumentary: Present: clear, warm, dry Psychiatric: appropriate mood/affect, intact judgment & insight Neurologic: CNII-XII intact, moves all extremities - Constitutional Vitals: Temp Pulse Resp BP Pulse Ox 98.3 F 79 20 138/90 100 01/28/21 05:16 01/28/21 05:16 01/28/21 10:51 01/28/21 05:16 01/28/21 07:58 Plan Activity: no restrictions Weight Bearing Status: Full Weight Bearing Diet: low salt Follow up with: MARY BENTLEY MD [Primary Care Provider] - 3-5 Days ETHAN THOMAS MD [Staff Physician] - 7 Days
[2021-01-28 13:40] VITALS: BP 145/87
--- NOTE | 2021-01-28 14:02 | Gastroenterology Progress Note ---
Assessment and Plan 1. GI: pt w/ ascites unclear etiology w/o fluid for paracenthesis today - low Na diet - further evaluation for liver disease as outpt - ok to dc. will sign off Subjective Date of service: 01/28/21 Interval history: - no complaints overnigt. No fluid for paracenthesis Objective - Constitutional Vitals: Temp Pulse Resp BP Pulse Ox 98.6 F 88 20 145/87 100 01/28/21 12:17 01/28/21 12:17 01/28/21 12:17 01/28/21 12:17 01/28/21 12:17 General appearance: no acute distress - EENT Eyes: PERRL - Respiratory Respiratory: bilateral: CTA - Cardiovascular Rhythm: regular Heart Sounds: Present: S1 & S2 - Gastrointestinal General gastrointestinal: Present: soft, non-tender, non-distended - Labs CBC & Chem 7: 01/27/21 14:08 01/27/21 14:08 Labs: Laboratory Results - last 24 hr 01/25/21 01/27/21 01/27/21 13:32 14:08 14:08 WBC 4.7 RBC 2.86 L Hgb 7.7 L Hct 23.5 L MCV 82 MCH 27 L MCHC 33 RDW 15.6 H Plt Count 337 Sodium 138 Potassium 4.0 D Chloride 105.6 Carbon Dioxide 27 Anion Gap 9 BUN 2 L Creatinine 0.7 Estimated GFR > 60 BUN/Creatinine Ratio 3 Glucose 75 Calcium 8.2 L Vitamin E TNR
== END 2021-01-28 15:00 | disposition home or self-care (01) ==
LOC: ED 13:50 → 3A 21:23 → INTOOBSV 01-27 10:50 → OBSVTOIN 01-27 10:50
PROVIDERS: ADMIT Hospitalist; ATTEND Family Medicine
DX: R18.8 Other ascites (principal); E87.2 Acidosis; R10.11 Right upper quadrant pain; E83.42 Hypomagnesemia; E87.6 Hypokalemia; R19.8 Other specified symptoms and signs involving the digestive system and abdomen; R30.0 Dysuria; J90 Pleural effusion, not elsewhere classified; D64.9 Anemia, unspecified; E88.09 Other disorders of plasma-protein metabolism, not elsewhere classified; E66.9 Obesity, unspecified; Z98.84 Bariatric surgery status; Z91.14 Patient's other noncompliance with medication regimen; Z68.24 Body mass index [BMI] 24.0-24.9, adult; Z79.899 Other long term (current) drug therapy; Z98.890 Other specified postprocedural states
CPT/HCPCS: 36415; 71045; 71275; 74177; 76705; 80048; 80053; 81001; 82140; 82607; 82728; 83550; 83690; 83735; 83880; 84207; 84425; 84436; 84443; 84484; 84590; 84703; 85025; 85027; 85379; 85610; 87040; 87086; 93005; 96361; 96365; 96366; 96367; 96368; 96372; 96375; 96376; 99291; G0378; J0696; J1170; J1644; J2270; J3475; J3480; J7120; P9047; Q9967; 96374